=== PATIENT | male | born 1975 | race Hispanic/Latino ===

== ENCOUNTER 2021-03-04 21:47 | Inpatient (IN) | payer OTHER, SELFPAY ==
[~2021-03-04 21:47] MED LIST: Iopamidol-370 76% 500 ML 1 ML ONE
[2021-03-04] MEDS ORDERED: Fentanyl 100 MCG/2 ML VIAL ONE (21:54)
[2021-03-04] MEDS ORDERED: Boostrix 0.5 ML (Tdap) VIAL ONE (22:07)
[2021-03-04] MEDS ORDERED: Dextrose 5% in Water 1,000 ML IV PRN (22:12)
[2021-03-04] MEDS ORDERED: Ondansetron PF 4 MG/2 ML Vial IVP PRN (22:12)
[2021-03-04] MEDS ORDERED: Dextrose 50% Abboject 50 ML SYRINGE SLOW IVP PRN (22:12)
[2021-03-04] MEDS ORDERED: Sodium Chloride 0.9% 1,000 ML IV SCH (22:15)
[2021-03-04 22:19] LABS: #Eosinphils 0.1 thou/uL (0.0-0.7); #Lymphocytes 2.2 thou/uL (1.20-3.40); #Neutrophils 11.8 thou/uL (1.40-6.50); %Eosinophils 0.4 % (0.0-10.0); %Lymphocytes 14.3 % (21.0-51.0); %Monocytes 6.4 % (0.0-10.0); %Neutrophils 78.8 % (42.0-75.0); Hemoglobin 13.2 g/dL (14.0-18.0); Mean Corpuscular HGB CONC 33.2 g/dL (32.0-36.0); Mean Corpuscular Hemoglobin 31.1 pg (27.0-31.0); Mean Corpuscular Volume 93.8 fL (78.0-98.0); Mean Platelet Volume 7.8 fL (7.4-10.4); Platelet Count 240 thou/uL (130-400); RBC Distribution Width 12.2 % (11.5-14.5); Red Blood Cell (RBC) Count 4.25 mill/uL (4.70-6.10)
[2021-03-04] MEDS ORDERED: Ventilator Sedation Protocol 1 EACH FS ONE (22:20)
[2021-03-04] MEDS ORDERED: Lorazepam 2 MG/ML VIAL SLOW IVP PRN (22:30)
[2021-03-04] MEDS ORDERED: Propofol BOLUS 1,000 MG/100 ML VIAL IV PRN (22:30)
[2021-03-04] MEDS ORDERED: DISCONTINUE PREVIOUS NARCOTIC PAIN MEDICATIONS AND BENZODIAZEPINES FS SCH (22:30)
[2021-03-04] MEDS ORDERED: Propofol 1,000 MG/100 ML VIAL IV PRN (22:30)
[2021-03-04] MEDS ORDERED: Fentanyl BOLUS 250 ML IVPB PRN (22:30)
[2021-03-04 22:32] LABS: INR-International Normal Ratio 1.1; PTT 25.6 sec (22.9-36.1); Prothrombin Time 14.1 sec (12.0-14.7)
[2021-03-04 22:35] LABS: Actual Bicarbonate (HCO3a) 25.4 mEq/L (22-28); Analyzer IN Cardio ER; Base Excess (BEa) 0.9 mEq/L (-2.0 to +3.0); CO2 Tension 40.1 mmHg (35.0-45.0); Calcium, Ionized (arterial) 1.13 mmol/L (1.12-1.30); Hemoglobin (Hb) 13.6 g/dL (14.0-18.0); O2 Tension (PaO2), arterial 129.1 mmHg (80.0-100.0); Potassium - ABG Lab 3.86 mmol/L (3.70-5.30); pH, Arterial 7.42 (7.35-7.45)
[2021-03-04 22:35] LABS: ALT (SGPT) 427 U/L (8-55); AST (SGOT) 548 U/L (5-34); Albumin 3.6 g/dL (3.5-5.0); Alkaline Phosphatase 82 U/L (40-110); Anion Gap 14 mmol/L (10-20); BUN (Urea Nitrogen) 16 mg/dL (8.9-20.6); Bilirubin, Total 0.4 mg/dL (0.2-1.2); CK (CPK) 2959 U/L (30-200); Calc. Creatinine Clearance 0 mL/min (70-130); Calcium 8.8 mg/dL (7.8-10.44); Carbon Dioxide 25 mmol/L (22-29); Chloride 105 mmol/L (98-107); Globulin 3.4 g/dL (2.4-3.5); Glucose 278 mg/dL (70-105); Magnesium 2.2 mg/dL (1.6-2.6); Phosphorus 4.7 mg/dL (2.3-4.7); Potassium 4.1 mmol/L (3.5-5.1); Sodium 140 mmol/L (136-145)
[2021-03-04 23:15] LABS: ALV-art Gradient 177.275 mmHg (0-20); Puncture Site LRA
[2021-03-05] MEDS: Insulin Regular 300 UNITS/3 ML VIAL SC PRN ×3 (01:02→10:39)
[2021-03-05 01:13] LABS: Lactic Acid 3.3 mmol/L (0.5-2.2)
[2021-03-05] MEDS: Sodium Chloride 0.9% 1,000 ML IV SCH ×2 (01:24→06:24)
[2021-03-05 04:30] LABS: INR-International Normal Ratio 1.1; PTT 32.4 sec (22.9-36.1); Prothrombin Time 14.3 sec (12.0-14.7)
[2021-03-05 04:43] LABS: Anion Gap 14 mmol/L (10-20); BUN (Urea Nitrogen) 17 mg/dL (8.9-20.6); Calc. Creatinine Clearance 106 mL/min (70-130); Calcium 8.3 mg/dL (7.8-10.44); Carbon Dioxide 24 mmol/L (22-29); Chloride 108 mmol/L (98-107); Glucose 255 mg/dL (70-105); Sodium 142 mmol/L (136-145)
[2021-03-05 04:45] LABS: Bacteria/HPF None Seen HPF (None Seen); Bilirubin Negative (Negative); Blood, Urine 3+ (Negative); Clarity Clear (Clear); Glucose, Urine (Dipstick) Normal (Negative); Ketone, Urine Negative (Negative); Leukocyte Negative Leu/uL (Negative); Nitrite Negative (Negative); Protein, Urine (Dipstick) 20 mg/dL (Neg-Trace); Specific Gravity, Urine 1.041 (1.002-1.036); Squamous Epithelial None Seen HPF (0-3); Urobilinogen Normal mg/dL (Less than 2); pH, Urine 5.5 (5.0-9.0)
[2021-03-05 05:00] LABS: CK (CPK) 5605 U/L (30-200)
[2021-03-05 05:14] LABS: Hemoglobin 11.4 g/dL (14.0-18.0); Mean Corpuscular HGB CONC 33.9 g/dL (32.0-36.0); Mean Corpuscular Hemoglobin 31.8 pg (27.0-31.0); Mean Corpuscular Volume 93.9 fL (78.0-98.0); Mean Platelet Volume 8.2 fL (7.4-10.4); Platelet Count 173 thou/uL (130-400); RBC Distribution Width 12.3 % (11.5-14.5); Red Blood Cell (RBC) Count 3.59 mill/uL (4.70-6.10); White Blood Cell (WBC) Count 14.5 thou/uL (4.8-10.8)
[2021-03-05 05:15] LABS: Band 31 % (5-11); Lymphocytes 9 % (21-51); MDiff Complete? YES; Monocytes 8 % (0-10); Neutrophil 52 % (42-75); Platelet Morphology Comment Appears Adequate
[2021-03-05 07:26] LABS: Actual Bicarbonate (HCO3a) 18.6 mEq/L (22-28); Base Excess (BEa) -2.5 mEq/L (-2.0 to +3.0); Calcium, Ionized (arterial) 1.08 mmol/L (1.12-1.30); Carboxyhemoglobin (COHb) 0.1 gm% (0.0-3.0); Hemoglobin (Hb) 12.1 g/dL (14.0-18.0); O2 Tension (PaO2), arterial 78.7 mmHg (80.0-100.0); Potassium - ABG Lab 3.75 mmol/L (3.70-5.30); pH, Arterial 7.53 (7.35-7.45)
[2021-03-05 07:57] LABS: Hemoglobin A1c 7.4 % (4.0-6.0)
[2021-03-05 08:20] LABS: ALV-art Gradient 177.875 mmHg (0-20); CO2 Tension 22.9 mmHg (35.0-45.0); Puncture Site RRA
[2021-03-05] MEDS: Famotidine/PF 20 mg/2ml Vial SLOW IVP SCH ×2 (09:00→20:53)
[2021-03-05] MEDS ORDERED: Calcium Chloride 13.6 MEQ in Sodium Chloride 0.9% 100 ML IVPB SCH (10:30)
[2021-03-05] MEDS ORDERED: Lactated Ringer's 1,000 ML IV SCH (10:45)
[2021-03-05] MEDS ORDERED: Sodium Phosphate 30 MMOL in Sodium Chloride 0.9% 250 ML 250 ML IVPB SCH (10:45)
[2021-03-05] MEDS: Lactated Ringer's 1,000 ML IV SCH ×2 (12:03→18:52)
[2021-03-05] MEDS ORDERED: Fentanyl CADD 100 ML ONE (12:20)
[2021-03-05] MEDS: Fentanyl CADD 100 ML IV SCH (12:23)
[2021-03-05] MEDS ORDERED: Dextrose 5% in Water 1,000 ML IV PRN (13:45)
[2021-03-05] MEDS ORDERED: Dextrose 50% Abboject 50 ML SYRINGE SLOW IVP PRN (13:45)
[2021-03-05] MEDS: HUMULIN R 100 UNITS in Sodium Chloride 0.9% 100 ML IVPB SCH (15:04)
[2021-03-06] MEDS: Lactated Ringer's 1,000 ML IV SCH ×4 (02:10→16:06)
[2021-03-06] MEDS ORDERED: Lactated Ringer's 1,000 ML IV SCH (03:45)
[2021-03-06] MEDS ORDERED: Fentanyl CADD 100 ML ONE (06:02)
[2021-03-06 06:03] LABS: Hemoglobin 8.2 g/dL (14.0-18.0); Mean Corpuscular HGB CONC 34.4 g/dL (32.0-36.0); Mean Corpuscular Hemoglobin 32.7 pg (27.0-31.0); Mean Corpuscular Volume 95.1 fL (78.0-98.0); Mean Platelet Volume 7.8 fL (7.4-10.4); Platelet Count 116 thou/uL (130-400); RBC Distribution Width 12.7 % (11.5-14.5); Red Blood Cell (RBC) Count 2.51 mill/uL (4.70-6.10); White Blood Cell (WBC) Count 11.2 thou/uL (4.8-10.8)
[2021-03-06 06:09] LABS: Band 36 % (5-11); Lymphocytes 16 % (21-51); MDiff Complete? YES; Monocytes 4 % (0-10); Neutrophil 44 % (42-75); Platelet Morphology Comment Appears Decreased
[2021-03-06] MEDS ORDERED: Lorazepam 2 MG/ML VIAL SLOW IVP SCH (06:10)
[2021-03-06] MEDS: Lorazepam 2 MG/ML VIAL ONE (06:15)
[2021-03-06 06:17] LABS: Anion Gap 7 mmol/L (10-20); BUN (Urea Nitrogen) 18 mg/dL (8.9-20.6); Calc. Creatinine Clearance 138 mL/min (70-130); Calcium 8.4 mg/dL (7.8-10.44); Carbon Dioxide 28 mmol/L (22-29); Chloride 115 mmol/L (98-107); Glucose 120 mg/dL (70-105); Sodium 146 mmol/L (136-145)
[2021-03-06 06:26] LABS: CK (CPK) 4638 U/L (30-200)
[2021-03-06] MEDS: HUMULIN R 100 UNITS in Sodium Chloride 0.9% 100 ML IVPB SCH (06:37)
[2021-03-06 07:00] LABS: pH, Arterial 7.34 (7.35-7.45)
[2021-03-06 07:01] LABS: Base Excess (BEa) -2.7 mEq/L (-2.0 to +3.0); Calcium, Ionized (arterial) 1.18 mmol/L (1.12-1.30); Carboxyhemoglobin (COHb) 0.3 gm% (0.0-3.0); Hemoglobin (Hb) 9.5 g/dL (14.0-18.0); O2 Tension (PaO2), arterial 156.9 mmHg (80.0-100.0); Potassium - ABG Lab 3.51 mmol/L (3.70-5.30)
[2021-03-06 07:07] LABS: Puncture Site RRA
[2021-03-06] MEDS ORDERED: Ferrous Sulfate 325 MG TAB PO SCH (08:00)
[2021-03-06] MEDS: Ascorbic Acid 500 mg Chewable Tablet PER TUBE SCH ×2 (10:00→20:16)
[2021-03-06] MEDS: Famotidine/PF 20 mg/2ml Vial SLOW IVP SCH ×2 (10:00→20:16)
[2021-03-06 11:27] LABS: Actual Bicarbonate (HCO3a) 26.4 mEq/L (22-28); Base Excess (BEa) 1.8 mEq/L (-2.0 to +3.0); CO2 Tension 40.9 mmHg (35.0-45.0); Calcium, Ionized (arterial) 1.16 mmol/L (1.12-1.30); Carboxyhemoglobin (COHb) 0.1 gm% (0.0-3.0); Hemoglobin (Hb) 8.6 g/dL (14.0-18.0); O2 Tension (PaO2), arterial 90.3 mmHg (80.0-100.0); Potassium - ABG Lab 3.93 mmol/L (3.70-5.30); pH, Arterial 7.43 (7.35-7.45)
[2021-03-06 11:29] LABS: ALV-art Gradient 215.075 mmHg (0-20); Puncture Site RRA
[2021-03-06] MEDS ORDERED: Lactated Ringer's 500 ML IV SCH ×3 (12:00→20:15)
[2021-03-06] MEDS ORDERED: Pancrelipase DR 12,000 1 CAP FS PRN (15:15)
[2021-03-06] MEDS ORDERED: Sodium Bicarbonate Tab 325 MG TAB PER TUBE PRN (15:15)
[2021-03-06] MEDS ORDERED: Midodrine HCl 5 MG TAB PER TUBE SCH (20:15)
[2021-03-06] MEDS ORDERED: Hydrocortisone Sod Succ/PF 100 mg/2 ml Vial IVP SCH (20:30)
[2021-03-06] MEDS ORDERED: Norepinephrine 8 MG/0.9% NS 250 ML ONE (20:41)
[2021-03-06] MEDS ORDERED: Norepinephrine 8 MG/0.9% NS 250 ML IVPB SCH (22:15)
[2021-03-07] MEDS: Lactated Ringer's 1,000 ML IV SCH (00:35)
[2021-03-07] MEDS: Hydrocortisone Sod Succ/PF 100 mg/2 ml Vial IVP SCH ×4 (01:40→21:21)
[2021-03-07] MEDS: HUMULIN R 100 UNITS in Sodium Chloride 0.9% 100 ML IVPB SCH (01:40)
[2021-03-07] MEDS ORDERED: Midazolam HCl 2 mg/2 ml Vial SLOW IVP SCH (04:00)
[2021-03-07] MEDS ORDERED: Fentanyl CADD 100 ML ONE ×2 (04:03→16:56)
[2021-03-07 04:04] LABS: #Lymphocytes 2.7 thou/uL (1.20-3.40); #Neutrophils 12.7 thou/uL (1.40-6.50); %Eosinophils 0.1 % (0.0-10.0); %Lymphocytes 16.6 % (21.0-51.0); %Monocytes 6.2 % (0.0-10.0); %Neutrophils 77.1 % (42.0-75.0); Hemoglobin 8.3 g/dL (14.0-18.0); Mean Corpuscular HGB CONC 34.4 g/dL (32.0-36.0); Mean Corpuscular Hemoglobin 32.9 pg (27.0-31.0); Mean Corpuscular Volume 95.9 fL (78.0-98.0); Mean Platelet Volume 8.5 fL (7.4-10.4); Platelet Count 134 thou/uL (130-400); RBC Distribution Width 12.5 % (11.5-14.5); Red Blood Cell (RBC) Count 2.53 mill/uL (4.70-6.10); White Blood Cell (WBC) Count 16.5 thou/uL (4.8-10.8)
[2021-03-07] MEDS: Fentanyl CADD 100 ML IV SCH ×2 (04:13→16:58)
[2021-03-07 04:16] LABS: INR-International Normal Ratio 1.2; PTT 35.6 sec (22.9-36.1)
[2021-03-07 04:20] LABS: Anion Gap 7 mmol/L (10-20); BUN (Urea Nitrogen) 19 mg/dL (8.9-20.6); Calc. Creatinine Clearance 153 mL/min (70-130); Calcium 8.6 mg/dL (7.8-10.44); Carbon Dioxide 30 mmol/L (22-29); Chloride 113 mmol/L (98-107); Glucose 123 mg/dL (70-105); Magnesium 2.1 mg/dL (1.6-2.6); Phosphorus 2.4 mg/dL (2.3-4.7); Sodium 146 mmol/L (136-145)
[2021-03-07 05:42] LABS: CK (CPK) 7014 U/L (30-200)
[2021-03-07] MEDS ORDERED: Midazolam HCl 2 mg/2 ml Vial SLOW IVP PRN ×2 (06:33)
[2021-03-07] MEDS ORDERED: Fentanyl 100 MCG/2 ML VIAL SLOW IVP PRN ×2 (06:34)
[2021-03-07] MEDS ORDERED: Vecuronium 10 MG VIAL IV SCH (06:45)
[2021-03-07] MEDS ORDERED: Lidocaine 1% w/Epinephrine 1:100K 20 ML VIAL FS SCH (06:45)
[2021-03-07] MEDS: Famotidine/PF 20 mg/2ml Vial SLOW IVP SCH ×2 (08:15→21:24)
[2021-03-07 08:21] LABS: Actual Bicarbonate (HCO3a) 25.4 mEq/L (22-28); Base Excess (BEa) 1.9 mEq/L (-2.0 to +3.0); CO2 Tension 35.3 mmHg (35.0-45.0); Calcium, Ionized (arterial) 1.14 mmol/L (1.12-1.30); Hemoglobin (Hb) 9.1 g/dL (14.0-18.0); Potassium - ABG Lab 3.95 mmol/L (3.70-5.30); pH, Arterial 7.48 (7.35-7.45)
[2021-03-07 08:26] LABS: O2 Tension (PaO2), arterial 57.4 mmHg (80.0-100.0); Puncture Site Arterial Line
[2021-03-07 08:27] LABS: ALV-art Gradient 254.975 mmHg (0-20)
[2021-03-07] MEDS: Vecuronium 10 MG VIAL ONE ×2 (13:00→14:00)
[2021-03-07] MEDS ORDERED: CEFAZOLIN 2 GM in Premix Bag 1 BAG IVPB SCH (13:15)
[2021-03-07] MEDS ORDERED: Midazolam HCl 2 mg/2 ml Vial ONE (13:26)
[2021-03-07] MEDS ORDERED: Furosemide 20 MG/2 ML VIAL SLOW IVP SCH (14:12)
[2021-03-07] MEDS ORDERED: Furosemide 40 MG/4 ML VIAL ONE (14:48)
[2021-03-07] MEDS: Insulin Regular 300 UNITS/3 ML VIAL SC PRN ×2 (15:31→21:32)
[2021-03-07] MEDS ORDERED: Lantus 1000 UNITS/10 ML VIAL SC SCH (21:00)
[2021-03-07] MEDS: Ascorbic Acid 500 mg Chewable Tablet PER TUBE SCH (21:24)
[2021-03-07] MEDS: Dexmedetomidine 1,000 MCG in Sodium Chloride 0.9% 250 ML 240 ML IVPB SCH (22:52)
[2021-03-08] MEDS ORDERED: Acetaminophen 650 MG Suppository PR PRN (01:03)
[2021-03-08] MEDS: Insulin Regular 300 UNITS/3 ML VIAL SC PRN ×5 (01:07→20:20)
[2021-03-08] MEDS: Hydrocortisone Sod Succ/PF 100 mg/2 ml Vial IVP SCH ×2 (03:26→07:35)
[2021-03-08 04:35] LABS: #Lymphocytes 2.1 thou/uL (1.20-3.40); %Basophils 0.1 % (0.0-1.0); %Eosinophils 0.1 % (0.0-10.0); %Lymphocytes 16.3 % (21.0-51.0); %Monocytes 7.5 % (0.0-10.0); Mean Corpuscular HGB CONC 32.7 g/dL (32.0-36.0); Mean Corpuscular Hemoglobin 31.4 pg (27.0-31.0); Mean Corpuscular Volume 96.1 fL (78.0-98.0); Mean Platelet Volume 8.8 fL (7.4-10.4); Platelet Count 146 thou/uL (130-400); RBC Distribution Width 12.3 % (11.5-14.5); Red Blood Cell (RBC) Count 2.21 mill/uL (4.70-6.10); White Blood Cell (WBC) Count 13.1 thou/uL (4.8-10.8)
[2021-03-08 04:49] LABS: Anion Gap 10 mmol/L (10-20); BUN (Urea Nitrogen) 19 mg/dL (8.9-20.6); CK (CPK) 3684 U/L (30-200); Calc. Creatinine Clearance 161 mL/min (70-130); Calcium 8.2 mg/dL (7.8-10.44); Carbon Dioxide 27 mmol/L (22-29); Chloride 113 mmol/L (98-107); Glucose 216 mg/dL (70-105); Phosphorus 2.8 mg/dL (2.3-4.7); Potassium 3.6 mmol/L (3.5-5.1); Sodium 146 mmol/L (136-145)
[2021-03-08] MEDS: Dexmedetomidine 1,000 MCG in Sodium Chloride 0.9% 250 ML 240 ML IVPB SCH ×2 (06:03→13:54)
[2021-03-08] MEDS ORDERED: Potassium Phosphate 30 MMOL in Sodium Chloride 0.9% 250 ML 250 ML IVPB SCH (07:30)
[2021-03-08] MEDS: Famotidine/PF 20 mg/2ml Vial SLOW IVP SCH ×2 (07:36→20:12)
[2021-03-08] MEDS: Ascorbic Acid 500 mg Chewable Tablet PER TUBE SCH ×2 (07:36→20:12)
[2021-03-08 08:13] LABS: Hemoglobin 8.2 g/dL (14.0-18.0); Mean Corpuscular HGB CONC 34.9 g/dL (32.0-36.0); Mean Corpuscular Hemoglobin 33.3 pg (27.0-31.0); Mean Corpuscular Volume 95.4 fL (78.0-98.0); Mean Platelet Volume 8.8 fL (7.4-10.4); Platelet Count 145 thou/uL (130-400); RBC Distribution Width 12.2 % (11.5-14.5); Red Blood Cell (RBC) Count 2.45 mill/uL (4.70-6.10); White Blood Cell (WBC) Count 11.6 thou/uL (4.8-10.8)
[2021-03-08] MEDS: Senokot S 8.6-50 MG TAB PO SCH ×2 (08:27→20:11)
[2021-03-08] MEDS: Polyethylene Glycol 3350 17 GM Packet PO SCH (08:27)
[2021-03-08 09:30] LABS: Band 7 % (5-11); Eosinophils 1 % (0-10); Lymphocytes 18 % (21-51); MDiff Complete? YES; Monocytes 4 % (0-10); Neutrophil 70 % (42-75); Platelet Morphology Comment Appears Adequate; Polychromasia SLIGHT = 2-3 cells (100X) (0-2/hpf)
[2021-03-08] MEDS: Furosemide 20 MG/2 ML VIAL SLOW IVP SCH ×2 (10:49→17:17)
[2021-03-08 11:00] LABS: Bacteria/HPF None Seen HPF (None Seen); Bilirubin Negative (Negative); Blood, Urine 3+ (Negative); Clarity Clear (Clear); Glucose, Urine (Dipstick) Normal (Negative); Ketone, Urine Negative (Negative); Leukocyte Negative Leu/uL (Negative); Nitrite Negative (Negative); Protein, Urine (Dipstick) 30 mg/dL (Neg-Trace); Specific Gravity, Urine 1.021 (1.002-1.036); Squamous Epithelial None Seen HPF (0-3); WBC/HPF 0-3 HPF (0-3); pH, Urine 6.5 (5.0-9.0)
[2021-03-08 11:02] LABS: Urine Culture Reflex No No
[2021-03-08] MEDS ORDERED: Piperacillin/Tazobactam 3.375 GM in Sodium Chloride 0.9% 100 ML IVPB SCH ×2 (17:30→18:00)
[2021-03-08] MEDS ORDERED: Piperacillin/Tazobactam 4.5 GM in Sodium Chloride 0.9% 100 ML IVPB SCH (18:00)
[2021-03-08] MEDS: Acetaminophen 650 MG/20.3 ML UDCUP PER TUBE PRN (20:11)
[2021-03-08] MEDS: Lantus 1000 UNITS/10 ML VIAL SC SCH (20:12)
[2021-03-09] MEDS: Piperacillin/Tazobactam 3.375 GM in Sodium Chloride 0.9% 100 ML IVPB SCH ×3 (00:59→16:10)
[2021-03-09] MEDS: Furosemide 20 MG/2 ML VIAL SLOW IVP SCH ×3 (01:00→21:16)
[2021-03-09] MEDS: Acetaminophen 650 MG/20.3 ML UDCUP PER TUBE PRN ×2 (01:10→19:20)
[2021-03-09] MEDS: Insulin Regular 300 UNITS/3 ML VIAL SC PRN ×4 (05:41→21:59)
[2021-03-09 06:48] LABS: Hemoglobin 9.1 g/dL (14.0-18.0); Mean Corpuscular HGB CONC 34.6 g/dL (32.0-36.0); Mean Corpuscular Hemoglobin 32.9 pg (27.0-31.0); Mean Corpuscular Volume 94.9 fL (78.0-98.0); Mean Platelet Volume 8.8 fL (7.4-10.4); Platelet Count 167 thou/uL (130-400); RBC Distribution Width 12.2 % (11.5-14.5); Red Blood Cell (RBC) Count 2.75 mill/uL (4.70-6.10); White Blood Cell (WBC) Count 16.5 thou/uL (4.8-10.8)
[2021-03-09 07:10] LABS: Anion Gap 11 mmol/L (10-20); BUN (Urea Nitrogen) 19 mg/dL (8.9-20.6); Calc. Creatinine Clearance 146 mL/min (70-130); Calcium 8.4 mg/dL (7.8-10.44); Carbon Dioxide 30 mmol/L (22-29); Chloride 108 mmol/L (98-107); Glucose 199 mg/dL (70-105); Magnesium 2.1 mg/dL (1.6-2.6); Phosphorus 3.3 mg/dL (2.3-4.7); Potassium 3.1 mmol/L (3.5-5.1); Sodium 146 mmol/L (136-145)
[2021-03-09] MEDS: Famotidine/PF 20 mg/2ml Vial SLOW IVP SCH ×2 (07:14→21:16)
[2021-03-09] MEDS: Ascorbic Acid 500 mg Chewable Tablet PER TUBE SCH ×2 (07:15→21:16)
[2021-03-09] MEDS: Polyethylene Glycol 3350 17 GM Packet PO SCH (07:16)
[2021-03-09] MEDS: Senokot S 8.6-50 MG TAB PO SCH ×2 (07:16→21:17)
[2021-03-09 07:38] LABS: Band 6 % (5-11); Eosinophils 2 % (0-10); Lymphocytes 13 % (21-51); MDiff Complete? YES; Monocytes 10 % (0-10); Neutrophil 68 % (42-75); Platelet Morphology Comment Appears Adequate; Polychromasia MODERATE = 3-4 cells (100X) (0-2/hpf)
[2021-03-09] MEDS ORDERED: Potassium Chloride 20 MEQ TAB PER TUBE SCH (08:30)
[2021-03-09] MEDS ORDERED: Fentanyl CADD 100 ML ONE (09:46)
[2021-03-09] MEDS: Dexmedetomidine 1,000 MCG in Sodium Chloride 0.9% 250 ML 240 ML IVPB SCH (10:35)
[2021-03-09 13:13] LABS: Potassium 3.2 mmol/L (3.5-5.1)
[2021-03-09] MEDS ORDERED: Lorazepam 2 MG/ML VIAL SLOW IVP SCH (13:15)
[2021-03-09 16:38] LABS: Phosphorus 3.6 mg/dL (2.3-4.7)
[2021-03-09 16:41] LABS: Anion Gap 12 mmol/L (10-20); BUN (Urea Nitrogen) 25 mg/dL (8.9-20.6); Calc. Creatinine Clearance 122 mL/min (70-130); Carbon Dioxide 28 mmol/L (22-29); Chloride 111 mmol/L (98-107); Glucose 204 mg/dL (70-105); Magnesium 2.2 mg/dL (1.6-2.6); Potassium 3.4 mmol/L (3.5-5.1); Sodium 148 mmol/L (136-145)
[2021-03-09] MEDS ORDERED: Potassium Phosphate 30 MMOL in Sodium Chloride 0.9% 500 ML IVPB SCH (18:30)
[2021-03-09] MEDS: Lantus 1000 UNITS/10 ML VIAL SC SCH (21:17)
[2021-03-10] MEDS: Piperacillin/Tazobactam 3.375 GM in Sodium Chloride 0.9% 100 ML IVPB SCH ×3 (00:55→16:05)
[2021-03-10 07:31] LABS: Hemoglobin 7.9 g/dL (14.0-18.0); Mean Corpuscular Hemoglobin 32.1 pg (27.0-31.0); Mean Corpuscular Volume 97.4 fL (78.0-98.0); Mean Platelet Volume 9.2 fL (7.4-10.4); Platelet Count 170 thou/uL (130-400); RBC Distribution Width 12.7 % (11.5-14.5); Red Blood Cell (RBC) Count 2.46 mill/uL (4.70-6.10); White Blood Cell (WBC) Count 13.2 thou/uL (4.8-10.8)
[2021-03-10 07:33] LABS: Anion Gap 12 mmol/L (10-20); BUN (Urea Nitrogen) 29 mg/dL (8.9-20.6); Calc. Creatinine Clearance 124 mL/min (70-130); Calcium 7.7 mg/dL (7.8-10.44); Carbon Dioxide 28 mmol/L (22-29); Chloride 113 mmol/L (98-107); Glucose 224 mg/dL (70-105); Magnesium 2.3 mg/dL (1.6-2.6); Phosphorus 3.5 mg/dL (2.3-4.7); Potassium 3.6 mmol/L (3.5-5.1); Sodium 149 mmol/L (136-145)
[2021-03-10] MEDS: Aspirin 325 MG TAB PO SCH (08:01)
[2021-03-10] MEDS: Famotidine/PF 20 mg/2ml Vial SLOW IVP SCH ×2 (08:01→21:02)
[2021-03-10] MEDS: Ascorbic Acid 500 mg Chewable Tablet PER TUBE SCH ×2 (08:01→21:02)
[2021-03-10 08:22] LABS: #Eosinphils 0.3 thou/uL (0.0-0.7); #Lymphocytes 2.6 thou/uL (1.20-3.40); #Monocytes 0.8 thou/uL (0.11-0.59); #Neutrophils 9.5 thou/uL (1.40-6.50); %Eosinophils 2.5 % (0.0-10.0); %Lymphocytes 19.7 % (21.0-51.0); %Monocytes 5.8 % (0.0-10.0)
[2021-03-10] MEDS: Senokot S 8.6-50 MG TAB PO SCH ×2 (08:29→21:00)
[2021-03-10] MEDS: Polyethylene Glycol 3350 17 GM Packet PO SCH (08:29)
[2021-03-10] MEDS: Acetaminophen 650 MG/20.3 ML UDCUP PER TUBE PRN ×2 (08:30→16:05)
[2021-03-10] MEDS: Insulin Regular 300 UNITS/3 ML VIAL SC PRN ×2 (08:31→16:08)
[2021-03-10] MEDS ORDERED: VANCOMYCIN 2 GRAM/400 ML BAG 2 GM in Premix Bag 1 BAG IVPB SCH (09:00)
[2021-03-10] MEDS ORDERED: Lactulose 10 GM/15 ML Oral Solution PO SCH (09:00)
[2021-03-10] MEDS ORDERED: Midazolam HCl 2 mg/2 ml Vial SLOW IVP SCH (09:07)
[2021-03-10] MEDS ORDERED: Midazolam HCl 2 mg/2 ml Vial ONE (09:07)
[2021-03-10] MEDS ORDERED: Fentanyl CADD 100 ML ONE (13:12)
[2021-03-10] MEDS: Fentanyl CADD 100 ML IV SCH (13:15)
[2021-03-10] MEDS: Vancomycin 1.5 GRAM/300 ML BAG 1.5 GM in Premix Bag 1 BAG IVPB SCH (16:05)
[2021-03-10] MEDS ORDERED: Lantus 1000 UNITS/10 ML VIAL SC SCH (21:00)
[2021-03-10] MEDS: Piperacillin/Tazobactam 4.5 GM in Sodium Chloride 0.9% 100 ML IVPB SCH (23:49)
[2021-03-11] MEDS: Vancomycin 1.5 GRAM/300 ML BAG 1.5 GM in Premix Bag 1 BAG IVPB SCH ×4 (01:45→21:00)
[2021-03-11] MEDS: Dexmedetomidine 1,000 MCG in Sodium Chloride 0.9% 250 ML 240 ML IVPB SCH ×2 (02:29→15:43)
[2021-03-11] MEDS: Insulin Regular 300 UNITS/3 ML VIAL SC PRN ×4 (02:32→18:01)
[2021-03-11 04:58] LABS: Anion Gap 10 mmol/L (10-20); BUN (Urea Nitrogen) 25 mg/dL (8.9-20.6); Calc. Creatinine Clearance 158 mL/min (70-130); Calcium 8.1 mg/dL (7.8-10.44); Carbon Dioxide 29 mmol/L (22-29); Chloride 113 mmol/L (98-107); Glucose 240 mg/dL (70-105); Magnesium 2.5 mg/dL (1.6-2.6); Phosphorus 2.4 mg/dL (2.3-4.7); Potassium 3.5 mmol/L (3.5-5.1); Sodium 148 mmol/L (136-145)
[2021-03-11] MEDS: Acetaminophen 650 MG/20.3 ML UDCUP PER TUBE PRN ×2 (05:14→17:16)
[2021-03-11 05:48] LABS: #Eosinphils 0.4 thou/uL (0.0-0.7); #Monocytes 0.7 thou/uL (0.11-0.59); #Neutrophils 10.2 thou/uL (1.40-6.50); %Basophils 0.1 % (0.0-1.0); %Eosinophils 3.2 % (0.0-10.0); %Lymphocytes 15.1 % (21.0-51.0); %Monocytes 5.1 % (0.0-10.0); %Neutrophils 76.4 % (42.0-75.0); Hemoglobin 8.2 g/dL (14.0-18.0); Mean Corpuscular HGB CONC 33.6 g/dL (32.0-36.0); Mean Corpuscular Hemoglobin 32.3 pg (27.0-31.0); Mean Corpuscular Volume 96.4 fL (78.0-98.0); Mean Platelet Volume 9.5 fL (7.4-10.4); Platelet Count 203 thou/uL (130-400); RBC Distribution Width 12.5 % (11.5-14.5); RBC Morphology Normal; Red Blood Cell (RBC) Count 2.53 mill/uL (4.70-6.10); White Blood Cell (WBC) Count 13.3 thou/uL (4.8-10.8)
[2021-03-11] MEDS ORDERED: Fentanyl CADD 100 ML ONE (07:44)
[2021-03-11] MEDS: Fentanyl CADD 100 ML IV SCH (07:49)
[2021-03-11] MEDS ORDERED: Potassium Phosphate 30 MMOL in Sodium Chloride 0.9% 500 ML IVPB SCH (08:00)
[2021-03-11] MEDS: Piperacillin/Tazobactam 4.5 GM in Sodium Chloride 0.9% 100 ML IVPB SCH (08:08)
[2021-03-11] MEDS: Senokot S 8.6-50 MG TAB PO SCH ×2 (08:28→21:30)
[2021-03-11] MEDS: Polyethylene Glycol 3350 17 GM Packet PO SCH (08:29)
[2021-03-11] MEDS: Aspirin 325 MG TAB PO SCH (08:29)
[2021-03-11] MEDS: Ascorbic Acid 500 mg Chewable Tablet PER TUBE SCH ×2 (08:29→21:30)
[2021-03-11] MEDS: Lorazepam 2 MG/ML VIAL ONE (10:53)
[2021-03-11 11:38] LABS: Vancomycin, Trough 15.6 ug/mL
[2021-03-11] MEDS: Famotidine/PF 20 mg/2ml Vial SLOW IVP SCH ×2 (11:38→21:31)
[2021-03-11] MEDS: Piperacillin/Tazobactam 3.375 GM in Sodium Chloride 0.9% 100 ML IVPB SCH (15:43)
[2021-03-11] MEDS: Lantus 1000 UNITS/10 ML VIAL SC SCH (21:51)
[2021-03-11] MEDS ORDERED: Calcium Chloride 1 GM/10 ML Abboject SYRINGE IVP SCH (22:00)
[2021-03-11] MEDS ORDERED: Hydrocortisone Sod Succ/PF 100 mg/2 ml Vial IVP SCH (22:00)
[2021-03-11 23:05] LABS: Anion Gap 11 mmol/L (10-20); BUN (Urea Nitrogen) 27 mg/dL (8.9-20.6); Calc. Creatinine Clearance 172 mL/min (70-130); Calcium 8.4 mg/dL (7.8-10.44); Carbon Dioxide 26 mmol/L (22-29); Chloride 114 mmol/L (98-107); Glucose 259 mg/dL (70-105); Magnesium 2.5 mg/dL (1.6-2.6); Phosphorus 3.2 mg/dL (2.3-4.7); Potassium 4.1 mmol/L (3.5-5.1); Sodium 147 mmol/L (136-145)
[2021-03-12] MEDS: Insulin Regular 300 UNITS/3 ML VIAL SC PRN ×3 (00:37→23:01)
[2021-03-12] MEDS: Piperacillin/Tazobactam 3.375 GM in Sodium Chloride 0.9% 100 ML IVPB SCH ×4 (00:42→22:51)
[2021-03-12] MEDS: Fentanyl CADD 100 ML IV SCH (03:08)
[2021-03-12] MEDS: Morphine 2 MG/ML VIAL SLOW IVP PRN (03:46)
[2021-03-12] MEDS: Vancomycin 1.5 GRAM/300 ML BAG 1.5 GM in Premix Bag 1 BAG IVPB SCH ×2 (03:52→13:36)
[2021-03-12 04:41] LABS: Hemoglobin 7.9 g/dL (14.0-18.0); Mean Corpuscular HGB CONC 32.4 g/dL (32.0-36.0); Mean Corpuscular Hemoglobin 31.7 pg (27.0-31.0); Mean Platelet Volume 9.4 fL (7.4-10.4); Platelet Count 227 thou/uL (130-400); RBC Distribution Width 12.5 % (11.5-14.5); Red Blood Cell (RBC) Count 2.48 mill/uL (4.70-6.10); White Blood Cell (WBC) Count 14.7 thou/uL (4.8-10.8)
[2021-03-12 04:43] LABS: Anion Gap 11 mmol/L (10-20); BUN (Urea Nitrogen) 26 mg/dL (8.9-20.6); Calc. Creatinine Clearance 166 mL/min (70-130); Calcium 8.7 mg/dL (7.8-10.44); Carbon Dioxide 24 mmol/L (22-29); Chloride 113 mmol/L (98-107); Glucose 272 mg/dL (70-105); Magnesium 2.5 mg/dL (1.6-2.6); Phosphorus 3.1 mg/dL (2.3-4.7); Potassium 4.2 mmol/L (3.5-5.1); Sodium 144 mmol/L (136-145); Vancomycin, Trough 21.7 ug/mL
[2021-03-12] MEDS: Dexmedetomidine 1,000 MCG in Sodium Chloride 0.9% 250 ML 240 ML IVPB SCH ×3 (05:46→22:25)
[2021-03-12] MEDS: Hydrocortisone Sod Succ/PF 100 mg/2 ml Vial IVP SCH ×4 (05:50→22:51)
[2021-03-12 06:43] LABS: Band 10 % (5-11); Eosinophils 1 % (0-10); Lymphocytes 6 % (21-51); MDiff Complete? YES; Monocytes 3 % (0-10); Neutrophil 80 % (42-75)
[2021-03-12] MEDS: Senokot S 8.6-50 MG TAB PO SCH ×2 (08:17→19:50)
[2021-03-12] MEDS: Famotidine/PF 20 mg/2ml Vial SLOW IVP SCH ×2 (08:18→19:55)
[2021-03-12] MEDS: Aspirin 325 MG TAB PO SCH (08:18)
[2021-03-12] MEDS: Polyethylene Glycol 3350 17 GM Packet PO SCH (08:18)
[2021-03-12] MEDS: Ascorbic Acid 500 mg Chewable Tablet PER TUBE SCH ×2 (08:18→19:55)
[2021-03-12] MEDS ORDERED: Lantus 1000 UNITS/10 ML VIAL SC SCH (09:00)
[2021-03-12] MEDS ORDERED: Refresh Lacri-lube Opth Oint 7 GM TUBE EA EYE SCH (09:00)
[2021-03-12] MEDS: Amantadine HCl 100 mg Capsule PO SCH (11:29)
[2021-03-12] MEDS: Acetaminophen 650 MG/20.3 ML UDCUP PER TUBE PRN ×2 (14:02→20:25)
[2021-03-12] MEDS ORDERED: Fentanyl CADD 100 ML ONE (18:46)
[2021-03-12] MEDS: Lantus 1000 UNITS/10 ML VIAL SC SCH (19:56)
[2021-03-13] MEDS: Hydrocortisone Sod Succ/PF 100 mg/2 ml Vial IVP SCH ×4 (05:24→23:24)
[2021-03-13] MEDS: Insulin Regular 300 UNITS/3 ML VIAL SC PRN ×3 (06:52→16:59)
[2021-03-13 07:19] LABS: Hemoglobin 8.3 g/dL (14.0-18.0); Mean Corpuscular HGB CONC 33.2 g/dL (32.0-36.0); Mean Corpuscular Hemoglobin 32.2 pg (27.0-31.0); Mean Corpuscular Volume 97.1 fL (78.0-98.0); Platelet Count 297 thou/uL (130-400); RBC Distribution Width 12.6 % (11.5-14.5); Red Blood Cell (RBC) Count 2.56 mill/uL (4.70-6.10); White Blood Cell (WBC) Count 21.7 thou/uL (4.8-10.8)
[2021-03-13 07:35] LABS: Anion Gap 10 mmol/L (10-20); BUN (Urea Nitrogen) 25 mg/dL (8.9-20.6); Calc. Creatinine Clearance 150 mL/min (70-130); Calcium 8.3 mg/dL (7.8-10.44); Carbon Dioxide 25 mmol/L (22-29); Chloride 116 mmol/L (98-107); Glucose 254 mg/dL (70-105); Magnesium 2.4 mg/dL (1.6-2.6); Phosphorus 2.8 mg/dL (2.3-4.7); Potassium 3.8 mmol/L (3.5-5.1); Sodium 147 mmol/L (136-145)
[2021-03-13 08:26] LABS: Band 6 % (5-11); Lymphocytes 12 % (21-51); MDiff Complete? YES; Monocytes 5 % (0-10); Neutrophil 75 % (42-75); Platelet Morphology Comment Appears Adequate; Polychromasia SLIGHT = 2-3 cells (100X) (0-2/hpf); Reactive Lymphocytes 1 % (0-10)
[2021-03-13] MEDS: Piperacillin/Tazobactam 3.375 GM in Sodium Chloride 0.9% 100 ML IVPB SCH ×3 (08:57→23:23)
[2021-03-13] MEDS: Senokot S 8.6-50 MG TAB PO SCH ×2 (08:58→20:31)
[2021-03-13] MEDS: Aspirin 325 MG TAB PO SCH (08:58)
[2021-03-13] MEDS: Saccharomyces boulardii 250 MG CAP PO SCH ×2 (08:58→20:31)
[2021-03-13] MEDS: Ascorbic Acid 500 mg Chewable Tablet PER TUBE SCH ×2 (08:58→20:31)
[2021-03-13] MEDS: Polyethylene Glycol 3350 17 GM Packet PO SCH (08:59)
[2021-03-13] MEDS: Famotidine/PF 20 mg/2ml Vial SLOW IVP SCH ×2 (08:59→20:31)
[2021-03-13] MEDS: Amantadine HCl 100 mg Capsule PO SCH (09:01)
[2021-03-13] MEDS: Fluconazole In NaCl,Iso-Osm 400 MG in Premix Bag 1 BAG IVPB SCH (09:02)
[2021-03-13] MEDS: Dexmedetomidine 1,000 MCG in Sodium Chloride 0.9% 250 ML 240 ML IVPB SCH ×2 (09:04→18:51)
[2021-03-13] MEDS: Acetaminophen 650 MG/20.3 ML UDCUP PER TUBE PRN ×2 (09:14→19:27)
[2021-03-13] MEDS ORDERED: Artificial Tear Sol 15 ML BOT EA EYE PRN (09:45)
[2021-03-13] MEDS: Lantus 1000 UNITS/10 ML VIAL SC SCH ×3 (10:03→20:34)
[2021-03-13] MEDS: HYDROcodone/Acetaminophen 10/325 mg Tablet PO SCH ×3 (11:06→23:22)
[2021-03-13 12:24] LABS: Bilirubin Negative (Negative); Blood, Urine 1+ (Negative); Clarity Clear (Clear); Glucose, Urine (Dipstick) Normal (Negative); Ketone, Urine Negative (Negative); Leukocyte 25 Leu/uL (Negative); Nitrite Negative (Negative); Protein, Urine (Dipstick) 10 mg/dL (Neg-Trace); Specific Gravity, Urine 1.028 (1.002-1.036); Squamous Epithelial None Seen HPF (0-3); Urobilinogen 6 mg/dL (Less than 2); pH, Urine 5.5 (5.0-9.0)
[2021-03-13 12:27] LABS: Bacteria/HPF 1+ HPF (None Seen)
[2021-03-13] MEDS ORDERED: Bisacodyl 10 MG SUPP PR SCH (13:15)
[2021-03-13] MEDS ORDERED: Furosemide 20 MG/2 ML VIAL SLOW IVP SCH (13:15)
[2021-03-13] MEDS ORDERED: Fentanyl CADD 0 ML ONE (13:36)
[2021-03-13] MEDS ORDERED: cloNIDine 0.1 MG TAB PO SCH (14:00)
[2021-03-13] MEDS: Morphine 2 MG/ML VIAL SLOW IVP PRN ×4 (15:39→23:27)
[2021-03-13] MEDS: cloNIDine 0.1 MG TAB PO SCH ×2 (16:57→23:22)
[2021-03-14] MEDS: Insulin Regular 300 UNITS/3 ML VIAL SC PRN ×5 (00:09→22:30)
[2021-03-14] MEDS: Acetaminophen 650 MG/20.3 ML UDCUP PER TUBE PRN ×2 (01:00→07:14)
[2021-03-14] MEDS: Morphine 2 MG/ML VIAL SLOW IVP PRN ×7 (02:21→23:06)
[2021-03-14 04:42] LABS: ALT (SGPT) 61 U/L (8-55); AST (SGOT) 48 U/L (5-34); Albumin 2.5 g/dL (3.5-5.0); Alkaline Phosphatase 105 U/L (40-110); Anion Gap 11 mmol/L (10-20); BUN (Urea Nitrogen) 23 mg/dL (8.9-20.6); Bilirubin, Direct 0.5 mg/dL (0.1-0.3); Bilirubin, Total 1.1 mg/dL (0.2-1.2); Calc. Creatinine Clearance 154 mL/min (70-130); Calcium 7.9 mg/dL (7.8-10.44); Carbon Dioxide 27 mmol/L (22-29); Chloride 112 mmol/L (98-107); Glucose 274 mg/dL (70-105); Magnesium 2.3 mg/dL (1.6-2.6); Phosphorus 2.7 mg/dL (2.3-4.7); Potassium 3.5 mmol/L (3.5-5.1); Protein, Total 6.3 g/dL (6.0-8.3); Sodium 146 mmol/L (136-145)
[2021-03-14 04:53] LABS: Hemoglobin 7.2 g/dL (14.0-18.0); Mean Corpuscular HGB CONC 33.2 g/dL (32.0-36.0); Mean Corpuscular Hemoglobin 32.1 pg (27.0-31.0); Mean Corpuscular Volume 96.7 fL (78.0-98.0); Platelet Count 287 thou/uL (130-400); RBC Distribution Width 12.8 % (11.5-14.5); Red Blood Cell (RBC) Count 2.25 mill/uL (4.70-6.10); White Blood Cell (WBC) Count 17.5 thou/uL (4.8-10.8)
[2021-03-14 05:01] LABS: Band 4 % (5-11); Eosinophils 2 % (0-10); Lymphocytes 15 % (21-51); MDiff Complete? YES; Monocytes 2 % (0-10); Neutrophil 77 % (42-75)
[2021-03-14] MEDS: HYDROcodone/Acetaminophen 10/325 mg Tablet PO SCH ×4 (05:32→23:27)
[2021-03-14] MEDS: cloNIDine 0.1 MG TAB PO SCH ×4 (05:32→23:28)
[2021-03-14] MEDS: Hydrocortisone Sod Succ/PF 100 mg/2 ml Vial IVP SCH ×4 (05:39→23:30)
[2021-03-14] MEDS ORDERED: Potassium Phosphate 30 MMOL in Sodium Chloride 0.9% 250 ML 250 ML IVPB SCH (07:00)
[2021-03-14] MEDS: Piperacillin/Tazobactam 3.375 GM in Sodium Chloride 0.9% 100 ML IVPB SCH ×3 (07:12→23:29)
[2021-03-14] MEDS: Dexmedetomidine 1,000 MCG in Sodium Chloride 0.9% 250 ML 240 ML IVPB SCH (07:13)
[2021-03-14] MEDS: Polyethylene Glycol 3350 17 GM Packet PO SCH (07:13)
[2021-03-14] MEDS: Senokot S 8.6-50 MG TAB PO SCH ×2 (07:14→20:20)
[2021-03-14] MEDS: Amantadine HCl 100 mg Capsule PO SCH (07:14)
[2021-03-14] MEDS: Aspirin 325 MG TAB PO SCH (07:14)
[2021-03-14] MEDS: Saccharomyces boulardii 250 MG CAP PO SCH ×2 (07:14→21:05)
[2021-03-14] MEDS: Ascorbic Acid 500 mg Chewable Tablet PER TUBE SCH ×2 (07:15→20:21)
[2021-03-14] MEDS: Famotidine/PF 20 mg/2ml Vial SLOW IVP SCH (07:15)
[2021-03-14] MEDS: Lantus 1000 UNITS/10 ML VIAL SC SCH ×2 (07:16→20:22)
[2021-03-14] MEDS: Fluconazole In NaCl,Iso-Osm 400 MG in Premix Bag 1 BAG IVPB SCH (07:56)
[2021-03-14] MEDS ORDERED: Furosemide 20 MG/2 ML VIAL SLOW IVP SCH (08:30)
[2021-03-14] MEDS: hydrALAZINE 20 MG/ML VIAL SLOW IVP PRN (13:02)
[2021-03-14] MEDS ORDERED: Haloperidol Lactate 5 MG/ML VIAL SLOW IVP PRN (14:57)
[2021-03-14] MEDS ORDERED: Morphine 4 MG/ML VIAL ONE ×2 (15:22→15:38)
[2021-03-14] MEDS ORDERED: Lorazepam 2 MG/ML VIAL ONE ×2 (15:30→15:38)
[2021-03-14] MEDS ORDERED: diphenhydrAMINE 50 MG/ML VIAL IVP SCH (16:45)
[2021-03-14] MEDS ORDERED: carBAMazepine 20 MG/ML ORAL SUSP PO SCH (17:00)
[2021-03-14] MEDS: carBAMazepine 20 MG/ML ORAL SUSP PO SCH (17:31)
[2021-03-14] MEDS: clonazePAM 1 MG TAB PO SCH (17:32)
[2021-03-14] MEDS: Famotidine 20 MG TAB PO SCH (20:21)
[2021-03-15] MEDS: Morphine 4 MG/ML VIAL SLOW IVP PRN ×6 (00:09→17:32)
[2021-03-15] MEDS: carBAMazepine 20 MG/ML ORAL SUSP PO SCH ×5 (01:22→18:15)
[2021-03-15] MEDS: clonazePAM 1 MG TAB PO SCH ×5 (01:25→17:31)
[2021-03-15] MEDS ORDERED: Haloperidol Lactate 5 MG/ML VIAL SLOW IVP SCH (02:45)
[2021-03-15 03:59] LABS: #Eosinphils 0.1 thou/uL (0.0-0.7); #Lymphocytes 1.6 thou/uL (1.20-3.40); #Monocytes 0.7 thou/uL (0.11-0.59); #Neutrophils 13.6 thou/uL (1.40-6.50); %Basophils 0.1 % (0.0-1.0); %Eosinophils 0.5 % (0.0-10.0); %Lymphocytes 10.2 % (21.0-51.0); %Monocytes 4.5 % (0.0-10.0); %Neutrophils 84.6 % (42.0-75.0); Hemoglobin 7.9 g/dL (14.0-18.0); Mean Corpuscular HGB CONC 33.9 g/dL (32.0-36.0); Mean Corpuscular Hemoglobin 32.7 pg (27.0-31.0); Mean Corpuscular Volume 96.4 fL (78.0-98.0); Mean Platelet Volume 8.9 fL (7.4-10.4); Platelet Count 371 thou/uL (130-400); RBC Distribution Width 13.6 % (11.5-14.5); Red Blood Cell (RBC) Count 2.42 mill/uL (4.70-6.10)
[2021-03-15 04:11] LABS: Anion Gap 9 mmol/L (10-20); BUN (Urea Nitrogen) 20 mg/dL (8.9-20.6); Calc. Creatinine Clearance 170 mL/min (70-130); Carbon Dioxide 27 mmol/L (22-29); Chloride 112 mmol/L (98-107); Glucose 218 mg/dL (70-105); Magnesium 2.3 mg/dL (1.6-2.6); Phosphorus 2.5 mg/dL (2.3-4.7); Sodium 145 mmol/L (136-145)
[2021-03-15] MEDS: Insulin Regular 300 UNITS/3 ML VIAL SC PRN ×3 (04:12→22:45)
[2021-03-15] MEDS: Hydrocortisone Sod Succ/PF 100 mg/2 ml Vial IVP SCH ×3 (06:30→17:32)
[2021-03-15] MEDS: HYDROcodone/Acetaminophen 10/325 mg Tablet PO SCH ×4 (06:30→17:31)
[2021-03-15] MEDS: cloNIDine 0.1 MG TAB PO SCH ×2 (06:30→17:30)
[2021-03-15] MEDS ORDERED: Potassium Phosphate 30 MMOL in Sodium Chloride 0.9% 250 ML 250 ML IVPB SCH (07:54)
[2021-03-15] MEDS: Fluconazole In NaCl,Iso-Osm 400 MG in Premix Bag 1 BAG IVPB SCH (08:53)
[2021-03-15] MEDS: Acetaminophen 650 MG/20.3 ML UDCUP PER TUBE PRN ×2 (08:54→17:30)
[2021-03-15] MEDS: Piperacillin/Tazobactam 3.375 GM in Sodium Chloride 0.9% 100 ML IVPB SCH ×2 (08:54→16:31)
[2021-03-15] MEDS: Ascorbic Acid 500 mg Chewable Tablet PER TUBE SCH ×2 (08:55→21:19)
[2021-03-15] MEDS: Senokot S 8.6-50 MG TAB PO SCH ×2 (08:55→21:19)
[2021-03-15] MEDS: Saccharomyces boulardii 250 MG CAP PO SCH ×2 (08:55→21:19)
[2021-03-15] MEDS: Aspirin 325 MG TAB PO SCH (08:55)
[2021-03-15] MEDS: Polyethylene Glycol 3350 17 GM Packet PO SCH (08:55)
[2021-03-15] MEDS: Amantadine HCl 100 mg Capsule PO SCH (08:56)
[2021-03-15] MEDS: Famotidine 20 MG TAB PO SCH ×2 (08:56→21:19)
[2021-03-15] MEDS: Lantus 1000 UNITS/10 ML VIAL SC SCH ×2 (08:57→21:20)
[2021-03-15] MEDS ORDERED: cloNIDine 0.2 MG TAB PO SCH ×2 (09:30)
[2021-03-16] MEDS: Morphine 4 MG/ML VIAL SLOW IVP PRN ×7 (03:27→21:35)
[2021-03-16] MEDS ORDERED: Hydrocortisone Sod Succ/PF 100 mg/2 ml Vial ONE (03:55)
[2021-03-16] MEDS: HYDROcodone/Acetaminophen 10/325 mg Tablet PO SCH ×5 (04:07→23:47)
[2021-03-16] MEDS: cloNIDine 0.1 MG TAB PO SCH ×5 (04:07→23:48)
[2021-03-16] MEDS: Morphine 2 MG/ML VIAL SLOW IVP PRN (04:17)
[2021-03-16] MEDS: Hydrocortisone Sod Succ/PF 100 mg/2 ml Vial IVP SCH ×2 (04:33→06:29)
[2021-03-16 05:16] LABS: Hemoglobin 7.8 g/dL (14.0-18.0); Mean Corpuscular HGB CONC 32.8 g/dL (32.0-36.0); Mean Corpuscular Hemoglobin 32.2 pg (27.0-31.0); Mean Platelet Volume 8.8 fL (7.4-10.4); Platelet Count 420 thou/uL (130-400); RBC Distribution Width 13.6 % (11.5-14.5); Red Blood Cell (RBC) Count 2.42 mill/uL (4.70-6.10); White Blood Cell (WBC) Count 15.2 thou/uL (4.8-10.8)
[2021-03-16] MEDS: carBAMazepine 20 MG/ML ORAL SUSP PO SCH ×5 (05:16→23:49)
[2021-03-16] MEDS: clonazePAM 1 MG TAB PO SCH ×2 (05:18→05:43)
[2021-03-16] MEDS: Piperacillin/Tazobactam 3.375 GM in Sodium Chloride 0.9% 100 ML IVPB SCH ×3 (05:19→21:37)
[2021-03-16 05:22] LABS: Anion Gap 9 mmol/L (10-20); BUN (Urea Nitrogen) 20 mg/dL (8.9-20.6); Calc. Creatinine Clearance 148 mL/min (70-130); Carbon Dioxide 30 mmol/L (22-29); Chloride 113 mmol/L (98-107); Glucose 175 mg/dL (70-105); Magnesium 5.6 mg/dL (1.6-2.6); Phosphorus 2.5 mg/dL (2.3-4.7); Potassium 3.1 mmol/L (3.5-5.1); Sodium 149 mmol/L (136-145)
[2021-03-16] MEDS: hydrALAZINE 20 MG/ML VIAL SLOW IVP PRN (05:37)
[2021-03-16 05:53] LABS: Band 2 % (5-11); Eosinophils 3 % (0-10); Lymphocytes 24 % (21-51); MDiff Complete? YES; Monocytes 5 % (0-10); Neutrophil 66 % (42-75); Polychromasia SLIGHT = 2-3 cells (100X) (0-2/hpf)
[2021-03-16] MEDS ORDERED: Potassium Phosphate 30 MMOL in Sodium Chloride 0.9% 250 ML 250 ML IVPB SCH (08:00)
[2021-03-16] MEDS ORDERED: clonazePAM 1 MG TAB PO SCH (08:15)
[2021-03-16] MEDS: Ascorbic Acid 500 mg Chewable Tablet PER TUBE SCH ×2 (08:52→20:05)
[2021-03-16] MEDS: Famotidine 20 MG TAB PO SCH ×2 (08:54→20:04)
[2021-03-16] MEDS: Saccharomyces boulardii 250 MG CAP PO SCH ×2 (08:54→20:04)
[2021-03-16] MEDS: Aspirin 325 MG TAB PO SCH (08:54)
[2021-03-16] MEDS: Polyethylene Glycol 3350 17 GM Packet PO SCH (08:54)
[2021-03-16] MEDS: Fluconazole In NaCl,Iso-Osm 400 MG in Premix Bag 1 BAG IVPB SCH (08:54)
[2021-03-16] MEDS: Senokot S 8.6-50 MG TAB PO SCH ×2 (08:54→20:04)
[2021-03-16] MEDS: Lantus 1000 UNITS/10 ML VIAL SC SCH ×2 (08:55→20:05)
[2021-03-16] MEDS ORDERED: Potassium Chloride 20 MEQ TAB PER TUBE SCH (09:00)
[2021-03-16] MEDS: Potassium Bicarbonate/Cit Ac 20 MEQ TAB PER TUBE SCH (21:47)
[2021-03-16] MEDS: Insulin Regular 300 UNITS/3 ML VIAL SC PRN (22:29)
[2021-03-17] MEDS: Morphine 4 MG/ML VIAL SLOW IVP PRN ×5 (01:43→23:05)
[2021-03-17] MEDS: Insulin Regular 300 UNITS/3 ML VIAL SC PRN ×3 (03:36→20:41)
[2021-03-17] MEDS: Piperacillin/Tazobactam 3.375 GM in Sodium Chloride 0.9% 100 ML IVPB SCH ×3 (05:15→22:05)
[2021-03-17] MEDS: cloNIDine 0.1 MG TAB PO SCH ×4 (05:16→23:00)
[2021-03-17] MEDS: carBAMazepine 20 MG/ML ORAL SUSP PO SCH ×4 (05:17→23:03)
[2021-03-17] MEDS: HYDROcodone/Acetaminophen 10/325 mg Tablet PO SCH ×4 (05:17→23:00)
[2021-03-17] MEDS ORDERED: Lorazepam 2 MG/ML VIAL SLOW IVP PRN (06:21)
[2021-03-17 07:53] LABS: Anion Gap 10 mmol/L (10-20); BUN (Urea Nitrogen) 19 mg/dL (8.9-20.6); Calc. Creatinine Clearance 172 mL/min (70-130); Calcium 7.8 mg/dL (7.8-10.44); Carbon Dioxide 27 mmol/L (22-29); Chloride 112 mmol/L (98-107); Glucose 175 mg/dL (70-105); Potassium 3.9 mmol/L (3.5-5.1); Sodium 145 mmol/L (136-145)
[2021-03-17] MEDS: Polyethylene Glycol 3350 17 GM Packet PO SCH (08:29)
[2021-03-17] MEDS: Aspirin 325 MG TAB PO SCH (08:29)
[2021-03-17] MEDS: Potassium Bicarbonate/Cit Ac 20 MEQ TAB PER TUBE SCH ×2 (08:29→20:36)
[2021-03-17] MEDS: Famotidine 20 MG TAB PO SCH ×2 (08:30→20:36)
[2021-03-17] MEDS: Ascorbic Acid 500 mg Chewable Tablet PER TUBE SCH ×2 (08:30→20:36)
[2021-03-17] MEDS: Saccharomyces boulardii 250 MG CAP PO SCH ×2 (08:30→20:36)
[2021-03-17] MEDS: Senokot S 8.6-50 MG TAB PO SCH ×2 (08:30→20:36)
[2021-03-17] MEDS: Lantus 1000 UNITS/10 ML VIAL SC SCH ×2 (08:32→20:41)
[2021-03-17] MEDS: Fluconazole In NaCl,Iso-Osm 400 MG in Premix Bag 1 BAG IVPB SCH (08:32)
[2021-03-18] MEDS: hydrALAZINE 20 MG/ML VIAL SLOW IVP PRN (02:00)
[2021-03-18] MEDS: Morphine 4 MG/ML VIAL SLOW IVP PRN ×7 (02:26→22:25)
[2021-03-18] MEDS: carBAMazepine 20 MG/ML ORAL SUSP PO SCH ×4 (05:13→22:58)
[2021-03-18] MEDS: Piperacillin/Tazobactam 3.375 GM in Sodium Chloride 0.9% 100 ML IVPB SCH ×3 (05:13→21:37)
[2021-03-18] MEDS: HYDROcodone/Acetaminophen 10/325 mg Tablet PO SCH ×4 (05:14→22:58)
[2021-03-18] MEDS: cloNIDine 0.1 MG TAB PO SCH ×4 (06:09→22:58)
[2021-03-18] MEDS: Acetaminophen 650 MG/20.3 ML UDCUP PER TUBE PRN (07:53)
[2021-03-18] MEDS: Famotidine 20 MG TAB PO SCH ×2 (07:53→21:37)
[2021-03-18] MEDS: Saccharomyces boulardii 250 MG CAP PO SCH ×2 (07:53→21:37)
[2021-03-18] MEDS: Ascorbic Acid 500 mg Chewable Tablet PER TUBE SCH ×2 (07:53→21:37)
[2021-03-18] MEDS: Potassium Bicarbonate/Cit Ac 20 MEQ TAB PER TUBE SCH ×2 (07:53→21:37)
[2021-03-18] MEDS: Aspirin 325 MG TAB PO SCH (07:53)
[2021-03-18] MEDS: Lantus 1000 UNITS/10 ML VIAL SC SCH ×2 (07:56→21:39)
[2021-03-18] MEDS: Senokot S 8.6-50 MG TAB PO SCH ×2 (07:57→21:37)
[2021-03-18] MEDS: Polyethylene Glycol 3350 17 GM Packet PO SCH (07:57)
[2021-03-18] MEDS: Fluconazole In NaCl,Iso-Osm 400 MG in Premix Bag 1 BAG IVPB SCH (08:30)
[2021-03-18 09:03] LABS: #Eosinphils 0.2 thou/uL (0.0-0.7); #Lymphocytes 2.1 thou/uL (1.20-3.40); #Monocytes 0.7 thou/uL (0.11-0.59); #Neutrophils 9.7 thou/uL (1.40-6.50); %Basophils 0.1 % (0.0-1.0); %Eosinophils 1.7 % (0.0-10.0); %Lymphocytes 16.7 % (21.0-51.0); %Monocytes 5.4 % (0.0-10.0); %Neutrophils 76.1 % (42.0-75.0); Hemoglobin 8.9 g/dL (14.0-18.0); Mean Corpuscular HGB CONC 33.6 g/dL (32.0-36.0); Mean Corpuscular Hemoglobin 32.9 pg (27.0-31.0); Mean Corpuscular Volume 98.1 fL (78.0-98.0); Mean Platelet Volume 8.2 fL (7.4-10.4); Platelet Count 429 thou/uL (130-400); RBC Distribution Width 14.7 % (11.5-14.5); White Blood Cell (WBC) Count 12.7 thou/uL (4.8-10.8)
[2021-03-18 09:33] LABS: Anion Gap 11 mmol/L (10-20); BUN (Urea Nitrogen) 17 mg/dL (8.9-20.6); Calc. Creatinine Clearance 177 mL/min (70-130); Calcium 7.8 mg/dL (7.8-10.44); Carbon Dioxide 24 mmol/L (22-29); Chloride 110 mmol/L (98-107); Glucose 188 mg/dL (70-105); Magnesium 2.2 mg/dL (1.6-2.6); Phosphorus 2.7 mg/dL (2.3-4.7); Potassium 4.1 mmol/L (3.5-5.1); Sodium 141 mmol/L (136-145)
[2021-03-18] MEDS: Insulin Regular 300 UNITS/3 ML VIAL SC PRN (10:50)
[2021-03-18] MEDS: Haloperidol Lactate 5 MG/ML VIAL IM PRN (22:50)
[2021-03-19] MEDS: Morphine 4 MG/ML VIAL SLOW IVP PRN ×3 (01:25→20:30)
[2021-03-19] MEDS: Piperacillin/Tazobactam 3.375 GM in Sodium Chloride 0.9% 100 ML IVPB SCH ×3 (05:27→20:30)
[2021-03-19] MEDS: hydrALAZINE 20 MG/ML VIAL SLOW IVP PRN (05:29)
[2021-03-19] MEDS: Haloperidol Lactate 5 MG/ML VIAL IM PRN (05:30)
[2021-03-19] MEDS ORDERED: Lorazepam 2 MG/ML VIAL SLOW IVP SCH (06:15)
[2021-03-19] MEDS: carBAMazepine 20 MG/ML ORAL SUSP PO SCH ×3 (06:17→18:07)
[2021-03-19] MEDS: cloNIDine 0.1 MG TAB PO SCH ×3 (06:18→18:09)
[2021-03-19] MEDS: HYDROcodone/Acetaminophen 10/325 mg Tablet PO SCH ×3 (06:18→18:08)
[2021-03-19 06:29] LABS: #Eosinphils 0.3 thou/uL (0.0-0.7); #Monocytes 0.8 thou/uL (0.11-0.59); #Neutrophils 11.7 thou/uL (1.40-6.50); %Basophils 0.2 % (0.0-1.0); %Eosinophils 1.5 % (0.0-10.0); %Lymphocytes 23.5 % (21.0-51.0); %Neutrophils 69.8 % (42.0-75.0); Hemoglobin 10.2 g/dL (14.0-18.0); Mean Corpuscular HGB CONC 32.6 g/dL (32.0-36.0); Mean Corpuscular Hemoglobin 32.2 pg (27.0-31.0); Mean Corpuscular Volume 98.8 fL (78.0-98.0); Mean Platelet Volume 8.3 fL (7.4-10.4); Platelet Count 557 thou/uL (130-400); RBC Distribution Width 14.9 % (11.5-14.5); Red Blood Cell (RBC) Count 3.15 mill/uL (4.70-6.10); White Blood Cell (WBC) Count 16.8 thou/uL (4.8-10.8)
[2021-03-19 06:44] LABS: Anion Gap 13 mmol/L (10-20); BUN (Urea Nitrogen) 11 mg/dL (8.9-20.6); Calc. Creatinine Clearance 184 mL/min (70-130); Calcium 8.3 mg/dL (7.8-10.44); Carbon Dioxide 24 mmol/L (22-29); Chloride 105 mmol/L (98-107); Glucose 122 mg/dL (70-105); Magnesium 2.2 mg/dL (1.6-2.6); Phosphorus 2.6 mg/dL (2.3-4.7); Potassium 4.2 mmol/L (3.5-5.1); Sodium 138 mmol/L (136-145)
[2021-03-19] MEDS: Lantus 1000 UNITS/10 ML VIAL SC SCH ×2 (09:13→20:32)
[2021-03-19] MEDS: Fluconazole In NaCl,Iso-Osm 400 MG in Premix Bag 1 BAG IVPB SCH (09:15)
[2021-03-19] MEDS: Famotidine 20 MG TAB PO SCH ×2 (11:02→20:29)
[2021-03-19] MEDS: Ascorbic Acid 500 mg Chewable Tablet PER TUBE SCH ×2 (11:02→20:30)
[2021-03-19] MEDS: Polyethylene Glycol 3350 17 GM Packet PO SCH (11:02)
[2021-03-19] MEDS: Aspirin 325 MG TAB PO SCH (11:02)
[2021-03-19] MEDS: Senokot S 8.6-50 MG TAB PO SCH ×2 (11:03→20:29)
[2021-03-19] MEDS: Potassium Bicarbonate/Cit Ac 20 MEQ TAB PER TUBE SCH ×2 (11:03→20:29)
[2021-03-19] MEDS: Saccharomyces boulardii 250 MG CAP PO SCH ×2 (11:03→20:29)
[2021-03-19] MEDS ORDERED: Apixaban 5 MG TAB PO SCH (14:00)
[2021-03-19] MEDS: Apixaban 2.5 MG TAB PO SCH (20:30)
[2021-03-20] MEDS: carBAMazepine 20 MG/ML ORAL SUSP PO SCH ×3 (00:16→12:11)
[2021-03-20] MEDS: cloNIDine 0.1 MG TAB PO SCH ×4 (00:17→18:31)
[2021-03-20] MEDS: Morphine 4 MG/ML VIAL SLOW IVP PRN ×4 (00:17→20:31)
[2021-03-20] MEDS: HYDROcodone/Acetaminophen 10/325 mg Tablet PO SCH ×5 (00:22→18:46)
[2021-03-20] MEDS: Piperacillin/Tazobactam 3.375 GM in Sodium Chloride 0.9% 100 ML IVPB SCH (05:26)
[2021-03-20 09:51] LABS: #Basophils 0.1 thou/uL (0.0-0.2); #Eosinphils 0.2 thou/uL (0.0-0.7); #Lymphocytes 3.3 thou/uL (1.20-3.40); #Monocytes 0.8 thou/uL (0.11-0.59); %Basophils 0.5 % (0.0-1.0); %Eosinophils 1.8 % (0.0-10.0); %Lymphocytes 24.4 % (21.0-51.0); %Monocytes 6.2 % (0.0-10.0); %Neutrophils 67.1 % (42.0-75.0); Hemoglobin 10.3 g/dL (14.0-18.0); Mean Corpuscular HGB CONC 30.9 g/dL (32.0-36.0); Mean Corpuscular Hemoglobin 30.6 pg (27.0-31.0); Mean Corpuscular Volume 99.3 fL (78.0-98.0); Platelet Count 612 thou/uL (130-400); Red Blood Cell (RBC) Count 3.36 mill/uL (4.70-6.10); White Blood Cell (WBC) Count 13.5 thou/uL (4.8-10.8)
[2021-03-20] MEDS: Famotidine 20 MG TAB PO SCH ×2 (09:53→20:20)
[2021-03-20] MEDS: Potassium Bicarbonate/Cit Ac 20 MEQ TAB PER TUBE SCH ×2 (09:53→20:20)
[2021-03-20] MEDS: Apixaban 2.5 MG TAB PO SCH ×2 (09:53→20:20)
[2021-03-20] MEDS: Saccharomyces boulardii 250 MG CAP PO SCH ×2 (09:54→20:20)
[2021-03-20] MEDS: Senokot S 8.6-50 MG TAB PO SCH ×2 (09:54→20:20)
[2021-03-20] MEDS: Lantus 1000 UNITS/10 ML VIAL SC SCH ×2 (09:54→12:13)
[2021-03-20] MEDS: Polyethylene Glycol 3350 17 GM Packet PO SCH (09:54)
[2021-03-20] MEDS: Ascorbic Acid 500 mg Chewable Tablet PER TUBE SCH ×2 (09:54→20:19)
[2021-03-20 10:11] LABS: ALT (SGPT) 44 U/L (8-55); AST (SGOT) 47 U/L (5-34); Albumin 2.8 g/dL (3.5-5.0); Alkaline Phosphatase 501 U/L (40-110); Anion Gap 15 mmol/L (10-20); BUN (Urea Nitrogen) 14 mg/dL (8.9-20.6); Bilirubin, Total 0.8 mg/dL (0.2-1.2); Calc. Creatinine Clearance 175 mL/min (70-130); Calcium 8.3 mg/dL (7.8-10.44); Carbon Dioxide 21 mmol/L (22-29); Chloride 104 mmol/L (98-107); Globulin 4.9 g/dL (2.4-3.5); Glucose 155 mg/dL (70-105); Potassium 4.7 mmol/L (3.5-5.1); Protein, Total 7.7 g/dL (6.0-8.3); Sodium 135 mmol/L (136-145)
[2021-03-20] MEDS: Insulin Regular 300 UNITS/3 ML VIAL SC PRN (12:14)
[2021-03-20] MEDS ORDERED: cloNIDine 0.1 MG TAB PO SCH (13:15)
[2021-03-20] MEDS ORDERED: carBAMazepine 200 MG/10 ML UDCUP PO SCH (13:15)
[2021-03-20] MEDS ORDERED: Haloperidol Lactate 5 MG/ML VIAL IM SCH (15:00)
[2021-03-20] MEDS ORDERED: Lorazepam 2 MG/ML VIAL ONE ×2 (15:33)
[2021-03-20] MEDS: carBAMazepine 200 MG/10 ML UDCUP PO SCH (19:03)
[2021-03-21] MEDS: HYDROcodone/Acetaminophen 10/325 mg Tablet PO SCH ×3 (00:44→11:51)
[2021-03-21] MEDS: cloNIDine 0.1 MG TAB PO SCH ×5 (00:51→23:37)
[2021-03-21] MEDS: carBAMazepine 200 MG/10 ML UDCUP PO SCH ×3 (01:13→11:51)
[2021-03-21] MEDS: Morphine 4 MG/ML VIAL SLOW IVP PRN ×4 (03:37→22:26)
[2021-03-21] MEDS: Senokot S 8.6-50 MG TAB PO SCH ×2 (11:45→21:16)
[2021-03-21] MEDS: Ascorbic Acid 500 mg Chewable Tablet PER TUBE SCH ×2 (11:45→21:16)
[2021-03-21] MEDS: Potassium Bicarbonate/Cit Ac 20 MEQ TAB PER TUBE SCH ×2 (11:45→21:16)
[2021-03-21] MEDS: Famotidine 20 MG TAB PO SCH ×2 (11:45→21:16)
[2021-03-21] MEDS: Apixaban 2.5 MG TAB PO SCH ×2 (11:45→21:16)
[2021-03-21] MEDS: Polyethylene Glycol 3350 17 GM Packet PO SCH (11:45)
[2021-03-21] MEDS: Lantus 1000 UNITS/10 ML VIAL SC SCH ×2 (12:24→21:17)
[2021-03-21] MEDS: Insulin Regular 300 UNITS/3 ML VIAL SC PRN (18:53)
[2021-03-21 20:20] LABS: Magnesium 2.2 mg/dL (1.6-2.6)
[2021-03-21] MEDS ORDERED: carBAMazepine 200 MG/10 ML UDCUP PO SCH (21:00)
[2021-03-22] MEDS: Acetaminophen 650 MG/20.3 ML UDCUP PER TUBE PRN (03:21)
[2021-03-22] MEDS: Morphine 4 MG/ML VIAL SLOW IVP PRN (04:10)
[2021-03-22] MEDS: Insulin Regular 300 UNITS/3 ML VIAL SC PRN ×3 (06:05→18:28)
[2021-03-22] MEDS: cloNIDine 0.1 MG TAB PO SCH ×3 (06:05→17:08)
[2021-03-22 06:06] LABS: #Eosinphils 0.1 thou/uL (0.0-0.7); #Lymphocytes 2.1 thou/uL (1.20-3.40); %Basophils 0.2 % (0.0-1.0); %Lymphocytes 15.8 % (21.0-51.0); %Monocytes 7.4 % (0.0-10.0); %Neutrophils 75.6 % (42.0-75.0); Hemoglobin 10.8 g/dL (14.0-18.0); Mean Corpuscular Hemoglobin 32.2 pg (27.0-31.0); Mean Corpuscular Volume 97.5 fL (78.0-98.0); Platelet Count 713 thou/uL (130-400); RBC Distribution Width 14.6 % (11.5-14.5); Red Blood Cell (RBC) Count 3.36 mill/uL (4.70-6.10); White Blood Cell (WBC) Count 13.2 thou/uL (4.8-10.8)
[2021-03-22 06:31] LABS: Anion Gap 14 mmol/L (10-20); BUN (Urea Nitrogen) 19 mg/dL (8.9-20.6); Calc. Creatinine Clearance 156 mL/min (70-130); Calcium 8.5 mg/dL (7.8-10.44); Carbon Dioxide 22 mmol/L (22-29); Chloride 103 mmol/L (98-107); Glucose 216 mg/dL (70-105); Phosphorus 3.1 mg/dL (2.3-4.7); Potassium 4.9 mmol/L (3.5-5.1); Sodium 134 mmol/L (136-145)
[2021-03-22] MEDS ORDERED: carBAMazepine 200 MG/10 ML UDCUP PO SCH (09:00)
[2021-03-22] MEDS ORDERED: Metoprolol Tartrate 25 MG TAB PO SCH (09:00)
[2021-03-22] MEDS ORDERED: Sodium Phosphate 15 MMOL in Sodium Chloride 0.9% 250 ML 250 ML IVPB SCH (09:00)
[2021-03-22] MEDS: HYDROcodone/Acetaminophen 10/325 mg Tablet PO PRN ×2 (09:22→16:48)
[2021-03-22] MEDS: Apixaban 2.5 MG TAB PO SCH ×2 (09:24→21:36)
[2021-03-22] MEDS: Famotidine 20 MG TAB PO SCH ×2 (09:24→21:36)
[2021-03-22] MEDS: Ascorbic Acid 500 mg Chewable Tablet PER TUBE SCH ×2 (09:25→21:35)
[2021-03-22] MEDS: Senokot S 8.6-50 MG TAB PO SCH ×2 (09:25→21:37)
[2021-03-22] MEDS: Potassium Bicarbonate/Cit Ac 20 MEQ TAB PER TUBE SCH ×2 (09:25→21:35)
[2021-03-22] MEDS: Polyethylene Glycol 3350 17 GM Packet PO SCH (09:27)
[2021-03-22] MEDS: Lantus 1000 UNITS/10 ML VIAL SC SCH ×2 (09:28→21:38)
[2021-03-22] MEDS: Sodium Chloride 1 GM TAB PO SCH ×2 (10:39→21:36)
[2021-03-22] MEDS: Metoprolol Tartrate 25 MG TAB PO SCH ×2 (12:24→17:08)
[2021-03-23] MEDS: HYDROcodone/Acetaminophen 10/325 mg Tablet PO PRN ×4 (00:32→23:19)
[2021-03-23] MEDS: Metoprolol Tartrate 25 MG TAB PO SCH ×4 (00:34→19:50)
[2021-03-23] MEDS: Insulin Regular 300 UNITS/3 ML VIAL SC PRN ×3 (00:34→18:40)
[2021-03-23] MEDS: cloNIDine 0.1 MG TAB PO SCH ×5 (00:34→23:18)
[2021-03-23] MEDS: Acetaminophen 650 MG/20.3 ML UDCUP PER TUBE PRN (05:54)
[2021-03-23] MEDS ORDERED: Furosemide 40 MG/4 ML VIAL SLOW IVP SCH (08:45)
[2021-03-23] MEDS: Apixaban 2.5 MG TAB PO SCH ×2 (09:21→19:50)
[2021-03-23] MEDS: Senokot S 8.6-50 MG TAB PO SCH ×2 (09:21→19:50)
[2021-03-23] MEDS: Famotidine 20 MG TAB PO SCH ×2 (09:21→19:50)
[2021-03-23] MEDS: Ascorbic Acid 500 mg Chewable Tablet PER TUBE SCH ×2 (09:23→19:51)
[2021-03-23] MEDS: Potassium Bicarbonate/Cit Ac 20 MEQ TAB PER TUBE SCH ×2 (09:23→19:51)
[2021-03-23] MEDS: Polyethylene Glycol 3350 17 GM Packet PO SCH (09:23)
[2021-03-23] MEDS: Sodium Chloride 1 GM TAB PO SCH ×2 (09:23→19:51)
[2021-03-23] MEDS: Lantus 1000 UNITS/10 ML VIAL SC SCH ×2 (09:26→19:51)
[2021-03-23] MEDS ORDERED: Haloperidol Lactate 5 MG/ML VIAL SLOW IVP SCH (12:15)
[2021-03-23] MEDS ORDERED: Morphine 4 MG/ML VIAL SLOW IVP SCH (13:30)
[2021-03-24 04:49] VITALS: BMI 31.5
[2021-03-24] MEDS: cloNIDine 0.1 MG TAB PO SCH ×4 (04:55→22:58)
[2021-03-24] MEDS: HYDROcodone/Acetaminophen 10/325 mg Tablet PO PRN ×2 (04:56→19:57)
[2021-03-24 07:18] LABS: #Eosinphils 0.3 thou/uL (0.0-0.7); #Lymphocytes 1.9 thou/uL (1.20-3.40); #Monocytes 1.1 thou/uL (0.11-0.59); #Neutrophils 11.8 thou/uL (1.40-6.50); %Basophils 0.2 % (0.0-1.0); %Eosinophils 1.7 % (0.0-10.0); %Lymphocytes 12.5 % (21.0-51.0); %Neutrophils 78.6 % (42.0-75.0); Hemoglobin 10.5 g/dL (14.0-18.0); Mean Corpuscular HGB CONC 31.2 g/dL (32.0-36.0); Mean Corpuscular Hemoglobin 30.6 pg (27.0-31.0); Mean Corpuscular Volume 98.3 fL (78.0-98.0); Platelet Count 697 thou/uL (130-400); RBC Distribution Width 14.7 % (11.5-14.5); Red Blood Cell (RBC) Count 3.43 mill/uL (4.70-6.10)
[2021-03-24 07:31] LABS: Anion Gap 11 mmol/L (10-20); BUN (Urea Nitrogen) 25 mg/dL (8.9-20.6); Calc. Creatinine Clearance 167 mL/min (70-130); Calcium 8.4 mg/dL (7.8-10.44); Carbon Dioxide 26 mmol/L (22-29); Chloride 109 mmol/L (98-107); Glucose 185 mg/dL (70-105); Magnesium 2.6 mg/dL (1.6-2.6); Phosphorus 3.3 mg/dL (2.3-4.7); Sodium 142 mmol/L (136-145)
[2021-03-24] MEDS: Potassium Bicarbonate/Cit Ac 20 MEQ TAB PER TUBE SCH ×2 (10:57→19:56)
[2021-03-24] MEDS: Polyethylene Glycol 3350 17 GM Packet PO SCH (10:57)
[2021-03-24] MEDS: Senokot S 8.6-50 MG TAB PO SCH ×2 (10:58→19:58)
[2021-03-24] MEDS: Apixaban 2.5 MG TAB PO SCH ×2 (10:59→19:57)
[2021-03-24] MEDS: Famotidine 20 MG TAB PO SCH ×2 (11:00→19:57)
[2021-03-24] MEDS: Ascorbic Acid 500 mg Chewable Tablet PER TUBE SCH ×2 (11:00→19:57)
[2021-03-24] MEDS: Metoprolol Tartrate 25 MG TAB PO SCH ×2 (11:02→19:57)
[2021-03-24] MEDS: Lantus 1000 UNITS/10 ML VIAL SC SCH ×2 (11:04→19:56)
[2021-03-24] MEDS: Nystatin 500,000 UNITS/5 ML UDCUP SSW SCH ×3 (13:25→19:56)
[2021-03-24] MEDS: Insulin Regular 300 UNITS/3 ML VIAL SC PRN (17:43)
[2021-03-25] MEDS: cloNIDine 0.1 MG TAB PO SCH ×2 (05:06→12:36)
[2021-03-25 06:45] LABS: #Eosinphils 0.3 thou/uL (0.0-0.7); #Lymphocytes 2.1 thou/uL (1.20-3.40); #Monocytes 1.1 thou/uL (0.11-0.59); #Neutrophils 13.1 thou/uL (1.40-6.50); %Basophils 0.2 % (0.0-1.0); %Eosinophils 1.5 % (0.0-10.0); %Lymphocytes 12.7 % (21.0-51.0); %Monocytes 6.5 % (0.0-10.0); %Neutrophils 79.1 % (42.0-75.0); Hemoglobin 11.2 g/dL (14.0-18.0); Mean Corpuscular HGB CONC 32.6 g/dL (32.0-36.0); Mean Corpuscular Hemoglobin 32.3 pg (27.0-31.0); Mean Corpuscular Volume 99.1 fL (78.0-98.0); Mean Platelet Volume 7.8 fL (7.4-10.4); Platelet Count 612 thou/uL (130-400); RBC Distribution Width 14.8 % (11.5-14.5); Red Blood Cell (RBC) Count 3.47 mill/uL (4.70-6.10); White Blood Cell (WBC) Count 16.5 thou/uL (4.8-10.8)
[2021-03-25] MEDS: Nystatin 500,000 UNITS/5 ML UDCUP SSW SCH ×4 (08:11→22:28)
[2021-03-25] MEDS: Apixaban 2.5 MG TAB PO SCH ×2 (08:13→22:27)
[2021-03-25] MEDS: Senokot S 8.6-50 MG TAB PO SCH ×2 (08:14→22:29)
[2021-03-25] MEDS: Famotidine 20 MG TAB PO SCH ×2 (08:14→22:26)
[2021-03-25] MEDS: Polyethylene Glycol 3350 17 GM Packet PO SCH (08:14)
[2021-03-25] MEDS: Potassium Bicarbonate/Cit Ac 20 MEQ TAB PER TUBE SCH ×2 (08:14→22:28)
[2021-03-25] MEDS: Ascorbic Acid 500 mg Chewable Tablet PER TUBE SCH ×2 (08:14→22:26)
[2021-03-25] MEDS: Metoprolol Tartrate 25 MG TAB PO SCH ×2 (08:17→22:27)
[2021-03-25] MEDS: Lantus 1000 UNITS/10 ML VIAL SC SCH ×2 (08:18→22:20)
[2021-03-25] MEDS: HYDROcodone/Acetaminophen 10/325 mg Tablet PO PRN (08:20)
[2021-03-25] MEDS ORDERED: Vancomycin HCl 2.5 GM in Sodium Chloride 0.9% 500 ML IVPB SCH (15:45)
[2021-03-25] MEDS ORDERED: Piperacillin/Tazobactam 3.375 GM in Sodium Chloride 0.9% 100 ML IVPB SCH ×2 (15:45→18:00)
[2021-03-25] MEDS: Piperacillin/Tazobactam 3.375 GM in Sodium Chloride 0.9% 100 ML IVPB SCH (23:30)
[2021-03-25] MEDS: Vancomycin 1.5 GRAM/300 ML BAG 1.5 GM in Premix Bag 1 BAG IVPB SCH (23:34)
[2021-03-26] MEDS: Insulin Regular 300 UNITS/3 ML VIAL SC PRN ×4 (00:32→18:08)
[2021-03-26 06:15] LABS: Hemoglobin 11.5 g/dL (14.0-18.0); Mean Corpuscular HGB CONC 32.5 g/dL (32.0-36.0); Mean Corpuscular Volume 98.6 fL (78.0-98.0); Mean Platelet Volume 7.8 fL (7.4-10.4); Platelet Count 535 thou/uL (130-400); RBC Distribution Width 14.5 % (11.5-14.5); Red Blood Cell (RBC) Count 3.59 mill/uL (4.70-6.10); White Blood Cell (WBC) Count 17.1 thou/uL (4.8-10.8)
[2021-03-26 06:41] LABS: Anion Gap 11 mmol/L (10-20); BUN (Urea Nitrogen) 24 mg/dL (8.9-20.6); Calc. Creatinine Clearance 153 mL/min (70-130); Calcium 8.5 mg/dL (7.8-10.44); Carbon Dioxide 25 mmol/L (22-29); Chloride 113 mmol/L (98-107); Glucose 189 mg/dL (70-105); Magnesium 3.1 mg/dL (1.6-2.6); Phosphorus 2.6 mg/dL (2.3-4.7); Potassium 4.1 mmol/L (3.5-5.1); Sodium 145 mmol/L (136-145)
[2021-03-26] MEDS: Vancomycin 1.5 GRAM/300 ML BAG 1.5 GM in Premix Bag 1 BAG IVPB SCH ×2 (08:41→16:34)
[2021-03-26] MEDS: Ascorbic Acid 500 mg Chewable Tablet PER TUBE SCH ×2 (09:42→20:49)
[2021-03-26] MEDS: Metoprolol Tartrate 25 MG TAB PO SCH ×2 (09:42→20:50)
[2021-03-26] MEDS: Apixaban 2.5 MG TAB PO SCH ×2 (09:42→20:49)
[2021-03-26] MEDS: Nystatin 500,000 UNITS/5 ML UDCUP SSW SCH ×4 (09:42→20:50)
[2021-03-26] MEDS: Potassium Bicarbonate/Cit Ac 20 MEQ TAB PER TUBE SCH ×2 (09:42→20:50)
[2021-03-26] MEDS: Senokot S 8.6-50 MG TAB PO SCH ×2 (09:43→20:51)
[2021-03-26] MEDS: Lantus 1000 UNITS/10 ML VIAL SC SCH ×2 (09:43→20:50)
[2021-03-26] MEDS: Polyethylene Glycol 3350 17 GM Packet PO SCH (09:43)
[2021-03-26] MEDS: Famotidine 20 MG TAB PO SCH ×2 (09:43→20:49)
[2021-03-26] MEDS: Piperacillin/Tazobactam 3.375 GM in Sodium Chloride 0.9% 100 ML IVPB SCH ×3 (09:44→18:08)
[2021-03-26 10:06] LABS: Band 15 % (5-11); Eosinophils 3 % (0-10); Lymphocytes 9 % (21-51); MDiff Complete? YES; Metamyelocyte 3 % (0-0); Neutrophil 69 % (42-75); Reactive Lymphocytes 1 % (0-10)
[2021-03-27] MEDS: Insulin Regular 300 UNITS/3 ML VIAL SC PRN ×2 (00:02→06:16)
[2021-03-27 01:14] LABS: Vancomycin, Trough 23.1 ug/mL
[2021-03-27] MEDS: Piperacillin/Tazobactam 3.375 GM in Sodium Chloride 0.9% 100 ML IVPB SCH ×3 (01:30→17:20)
[2021-03-27] MEDS: Vancomycin 1.5 GRAM/300 ML BAG 1.5 GM in Premix Bag 1 BAG IVPB SCH (02:45)
[2021-03-27 05:57] LABS: #Eosinphils 0.7 thou/uL (0.0-0.7); #Monocytes 0.7 thou/uL (0.11-0.59); #Neutrophils 7.7 thou/uL (1.40-6.50); %Basophils 0.3 % (0.0-1.0); %Eosinophils 6.2 % (0.0-10.0); %Lymphocytes 17.7 % (21.0-51.0); %Monocytes 6.6 % (0.0-10.0); %Neutrophils 69.3 % (42.0-75.0); Hemoglobin 10.6 g/dL (14.0-18.0); Mean Corpuscular HGB CONC 31.4 g/dL (32.0-36.0); Mean Corpuscular Hemoglobin 31.2 pg (27.0-31.0); Mean Corpuscular Volume 99.4 fL (78.0-98.0); Mean Platelet Volume 8.1 fL (7.4-10.4); Platelet Count 499 thou/uL (130-400); RBC Distribution Width 14.4 % (11.5-14.5); Red Blood Cell (RBC) Count 3.41 mill/uL (4.70-6.10); White Blood Cell (WBC) Count 11.1 thou/uL (4.8-10.8)
[2021-03-27] MEDS: VANCOMYCIN 1.25 GM/250 ML BAG 1.25 GM in Premix Bag 1 BAG IVPB SCH ×3 (06:16→23:24)
[2021-03-27 06:20] LABS: Anion Gap 9 mmol/L (10-20); BUN (Urea Nitrogen) 22 mg/dL (8.9-20.6); Calc. Creatinine Clearance 161 mL/min (70-130); Calcium 8.4 mg/dL (7.8-10.44); Carbon Dioxide 27 mmol/L (22-29); Chloride 116 mmol/L (98-107); Glucose 200 mg/dL (70-105); Magnesium 2.7 mg/dL (1.6-2.6); Phosphorus 2.8 mg/dL (2.3-4.7); Potassium 4.2 mmol/L (3.5-5.1); Sodium 148 mmol/L (136-145)
[2021-03-27] MEDS: Ascorbic Acid 500 mg Chewable Tablet PER TUBE SCH (09:38)
[2021-03-27] MEDS: Nystatin 500,000 UNITS/5 ML UDCUP SSW SCH ×3 (09:38→17:17)
[2021-03-27] MEDS: Potassium Bicarbonate/Cit Ac 20 MEQ TAB PER TUBE SCH (09:38)
[2021-03-27] MEDS: Famotidine 20 MG TAB PO SCH (09:38)
[2021-03-27] MEDS: Apixaban 2.5 MG TAB PO SCH (09:38)
[2021-03-27] MEDS: Metoprolol Tartrate 25 MG TAB PO SCH (09:38)
[2021-03-27] MEDS: Senokot S 8.6-50 MG TAB PO SCH (09:39)
[2021-03-27] MEDS: Polyethylene Glycol 3350 17 GM Packet PO SCH (09:39)
[2021-03-27] MEDS: Lantus 1000 UNITS/10 ML VIAL SC SCH (10:35)
[2021-03-27] MEDS ORDERED: Triple Antibiotic Opth Oint 3.5 GM TUBE R EYE SCH (12:00)
[2021-03-27] MEDS: Cortisporin 1% Opth Oint 3.5 GM TUBE R EYE SCH ×2 (14:31→17:20)
[2021-03-28] MEDS: Nystatin 500,000 UNITS/5 ML UDCUP SSW SCH ×5 (00:33→23:23)
[2021-03-28] MEDS: Metoprolol Tartrate 25 MG TAB PO SCH ×3 (00:34→23:23)
[2021-03-28] MEDS: Potassium Bicarbonate/Cit Ac 20 MEQ TAB PER TUBE SCH ×3 (00:34→23:23)
[2021-03-28] MEDS: Ascorbic Acid 500 mg Chewable Tablet PER TUBE SCH ×3 (00:34→23:24)
[2021-03-28] MEDS: Famotidine 20 MG TAB PO SCH ×3 (00:35→23:24)
[2021-03-28] MEDS: Lantus 1000 UNITS/10 ML VIAL SC SCH ×3 (00:35→23:22)
[2021-03-28] MEDS: Apixaban 2.5 MG TAB PO SCH ×3 (00:35→23:24)
[2021-03-28] MEDS: Senokot S 8.6-50 MG TAB PO SCH ×3 (00:39→23:24)
[2021-03-28] MEDS: Cortisporin 1% Opth Oint 3.5 GM TUBE R EYE SCH ×5 (01:11→23:23)
[2021-03-28] MEDS ORDERED: Piperacillin/Tazobactam 3.375 GM in Sodium Chloride 0.9% 100 ML IVPB SCH ×2 (03:00→10:00)
[2021-03-28] MEDS: Piperacillin/Tazobactam 3.375 GM in Sodium Chloride 0.9% 100 ML IVPB SCH (03:13)
[2021-03-28 05:53] LABS: #Eosinphils 0.6 thou/uL (0.0-0.7); #Lymphocytes 2.3 thou/uL (1.20-3.40); #Monocytes 0.7 thou/uL (0.11-0.59); #Neutrophils 6.5 thou/uL (1.40-6.50); %Eosinophils 6.1 % (0.0-10.0); %Lymphocytes 22.8 % (21.0-51.0); %Monocytes 6.9 % (0.0-10.0); %Neutrophils 64.1 % (42.0-75.0); Hemoglobin 11.1 g/dL (14.0-18.0); Mean Corpuscular HGB CONC 31.5 g/dL (32.0-36.0); Mean Corpuscular Hemoglobin 31.3 pg (27.0-31.0); Mean Corpuscular Volume 99.3 fL (78.0-98.0); Platelet Count 493 thou/uL (130-400); RBC Distribution Width 14.3 % (11.5-14.5); Red Blood Cell (RBC) Count 3.53 mill/uL (4.70-6.10); White Blood Cell (WBC) Count 10.2 thou/uL (4.8-10.8)
[2021-03-28 06:10] LABS: Anion Gap 13 mmol/L (10-20); BUN (Urea Nitrogen) 21 mg/dL (8.9-20.6); Calc. Creatinine Clearance 171 mL/min (70-130); Calcium 8.6 mg/dL (7.8-10.44); Carbon Dioxide 21 mmol/L (22-29); Chloride 114 mmol/L (98-107); Glucose 179 mg/dL (70-105); Magnesium 2.4 mg/dL (1.6-2.6); Phosphorus 3.1 mg/dL (2.3-4.7); Potassium 4.2 mmol/L (3.5-5.1); Sodium 144 mmol/L (136-145)
[2021-03-28] MEDS: Insulin Regular 300 UNITS/3 ML VIAL SC PRN (06:23)
[2021-03-28] MEDS: VANCOMYCIN 1.25 GM/250 ML BAG 1.25 GM in Premix Bag 1 BAG IVPB SCH (06:23)
[2021-03-28] MEDS: Saccharomyces boulardii 250 MG CAP PO SCH ×2 (09:20→23:24)
[2021-03-28] MEDS: Polyethylene Glycol 3350 17 GM Packet PO SCH (09:21)
[2021-03-28] MEDS: cefTRIAXone\\ROCEPHIN 1 GM in Sodium Chloride 0.9% 100 ML IVPB SCH (12:13)
[2021-03-29] MEDS: Cortisporin 1% Opth Oint 3.5 GM TUBE R EYE SCH ×4 (05:22→23:05)
[2021-03-29] MEDS: Senokot S 8.6-50 MG TAB PO SCH ×2 (09:50→23:05)
[2021-03-29] MEDS: Saccharomyces boulardii 250 MG CAP PO SCH ×2 (09:50→23:04)
[2021-03-29] MEDS: Nystatin 500,000 UNITS/5 ML UDCUP SSW SCH ×4 (09:50→23:04)
[2021-03-29] MEDS: Polyethylene Glycol 3350 17 GM Packet PO SCH (09:51)
[2021-03-29] MEDS: Ascorbic Acid 500 mg Chewable Tablet PER TUBE SCH ×2 (09:51→23:04)
[2021-03-29] MEDS: Apixaban 2.5 MG TAB PO SCH ×2 (09:51→23:18)
[2021-03-29] MEDS: Potassium Bicarbonate/Cit Ac 20 MEQ TAB PER TUBE SCH ×2 (09:51→23:03)
[2021-03-29] MEDS: Metoprolol Tartrate 25 MG TAB PO SCH ×2 (09:51→23:04)
[2021-03-29] MEDS: Famotidine 20 MG TAB PO SCH ×2 (09:51→23:04)
[2021-03-29] MEDS: Lantus 1000 UNITS/10 ML VIAL SC SCH ×2 (09:51→23:04)
[2021-03-29] MEDS: cefTRIAXone\\ROCEPHIN 1 GM in Sodium Chloride 0.9% 100 ML IVPB SCH (11:14)
[2021-03-30 06:03] LABS: Anion Gap 12 mmol/L (10-20); BUN (Urea Nitrogen) 18 mg/dL (8.9-20.6); Calc. Creatinine Clearance 188 mL/min (70-130); Calcium 8.8 mg/dL (7.8-10.44); Carbon Dioxide 23 mmol/L (22-29); Chloride 111 mmol/L (98-107); Glucose 157 mg/dL (70-105); Potassium 4.3 mmol/L (3.5-5.1); Sodium 142 mmol/L (136-145)
[2021-03-30] MEDS: Cortisporin 1% Opth Oint 3.5 GM TUBE R EYE SCH ×4 (06:10→23:42)
[2021-03-30] MEDS: Metoprolol Tartrate 25 MG TAB PO SCH ×2 (09:43→21:23)
[2021-03-30] MEDS: Saccharomyces boulardii 250 MG CAP PO SCH ×2 (09:43→21:23)
[2021-03-30] MEDS: Lantus 1000 UNITS/10 ML VIAL SC SCH ×2 (09:44→23:40)
[2021-03-30] MEDS: Ascorbic Acid 500 mg Chewable Tablet PER TUBE SCH ×2 (09:44→21:23)
[2021-03-30] MEDS: Nystatin 500,000 UNITS/5 ML UDCUP SSW SCH ×4 (09:44→21:23)
[2021-03-30] MEDS: Senokot S 8.6-50 MG TAB PO SCH ×2 (09:44→21:24)
[2021-03-30] MEDS: Famotidine 20 MG TAB PO SCH ×2 (09:44→21:23)
[2021-03-30] MEDS: Apixaban 2.5 MG TAB PO SCH ×2 (09:44→21:23)
[2021-03-30] MEDS: Potassium Bicarbonate/Cit Ac 20 MEQ TAB PER TUBE SCH ×2 (09:44→21:23)
[2021-03-30] MEDS: Polyethylene Glycol 3350 17 GM Packet PO SCH (09:44)
[2021-03-30] MEDS: cefTRIAXone\\ROCEPHIN 1 GM in Sodium Chloride 0.9% 100 ML IVPB SCH (11:58)
[2021-03-30] MEDS: Insulin Regular 300 UNITS/3 ML VIAL SC PRN (12:04)
[2021-03-30] MEDS: Moxifloxacin 0.5% Opth Drop 3 ML BOT L EYE SCH (15:55)
[2021-03-30 16:59] LABS: SARS-CoV-2 PCR by NAA Not Detected (NotDetected)
[2021-03-30] MEDS: Melatonin 3 MG TAB PO PRN (23:40)
[2021-03-31] MEDS: Cortisporin 1% Opth Oint 3.5 GM TUBE R EYE SCH ×4 (05:29→23:50)
[2021-03-31 06:11] LABS: Anion Gap 12 mmol/L (10-20); BUN (Urea Nitrogen) 20 mg/dL (8.9-20.6); Calc. Creatinine Clearance 180 mL/min (70-130); Calcium 8.9 mg/dL (7.8-10.44); Carbon Dioxide 23 mmol/L (22-29); Chloride 111 mmol/L (98-107); Glucose 117 mg/dL (70-105); Magnesium 2.5 mg/dL (1.6-2.6); Phosphorus 3.7 mg/dL (2.3-4.7); Potassium 5.8 mmol/L (3.5-5.1); Sodium 140 mmol/L (136-145)
[2021-03-31] MEDS ORDERED: Lantus 1000 UNITS/10 ML VIAL SC SCH ×2 (10:32→11:00)
[2021-03-31] MEDS: Ascorbic Acid 500 mg Chewable Tablet PER TUBE SCH ×2 (11:05→20:50)
[2021-03-31] MEDS: Metoprolol Tartrate 25 MG TAB PO SCH ×2 (11:05→20:51)
[2021-03-31] MEDS: Famotidine 20 MG TAB PO SCH ×2 (11:05→20:50)
[2021-03-31] MEDS: Saccharomyces boulardii 250 MG CAP PO SCH ×2 (11:05→20:51)
[2021-03-31] MEDS: Apixaban 2.5 MG TAB PO SCH ×2 (11:05→20:50)
[2021-03-31] MEDS: Nystatin 500,000 UNITS/5 ML UDCUP SSW SCH ×4 (11:05→20:52)
[2021-03-31] MEDS: Polyethylene Glycol 3350 17 GM Packet PO SCH (11:06)
[2021-03-31] MEDS: Senokot S 8.6-50 MG TAB PO SCH ×2 (11:06→20:51)
[2021-03-31] MEDS: cefTRIAXone\\ROCEPHIN 1 GM in Sodium Chloride 0.9% 100 ML IVPB SCH (11:19)
[2021-03-31] MEDS: Lantus 1000 UNITS/10 ML VIAL SC SCH (11:30)
[2021-03-31 12:07] LABS: Anion Gap 14 mmol/L (10-20); BUN (Urea Nitrogen) 20 mg/dL (8.9-20.6); Calc. Creatinine Clearance 194 mL/min (70-130); Calcium 9.2 mg/dL (7.8-10.44); Carbon Dioxide 23 mmol/L (22-29); Chloride 109 mmol/L (98-107); Glucose 140 mg/dL (70-105); Sodium 142 mmol/L (136-145)
[2021-04-01] MEDS: Acetaminophen 650 MG/20.3 ML UDCUP PER TUBE PRN ×2 (01:06→21:52)
[2021-04-01] MEDS: Melatonin 3 MG TAB PO PRN (01:06)
[2021-04-01] MEDS: Cortisporin 1% Opth Oint 3.5 GM TUBE R EYE SCH ×3 (05:50→17:24)
[2021-04-01] MEDS ORDERED: Melatonin 3 MG TAB PO PRN (08:13)
[2021-04-01] MEDS: Famotidine 20 MG TAB PO SCH ×2 (08:59→20:11)
[2021-04-01] MEDS: Apixaban 2.5 MG TAB PO SCH ×2 (08:59→20:11)
[2021-04-01] MEDS: Senokot S 8.6-50 MG TAB PO SCH ×2 (08:59→20:12)
[2021-04-01] MEDS: Saccharomyces boulardii 250 MG CAP PO SCH ×2 (09:00→20:12)
[2021-04-01] MEDS: Nystatin 500,000 UNITS/5 ML UDCUP SSW SCH ×4 (09:00→20:12)
[2021-04-01] MEDS: Ascorbic Acid 500 mg Chewable Tablet PER TUBE SCH ×2 (09:00→20:11)
[2021-04-01] MEDS ORDERED: Lantus 1000 UNITS/10 ML VIAL SC SCH ×3 (09:00→21:00)
[2021-04-01] MEDS: Metoprolol Tartrate 25 MG TAB PO SCH ×2 (09:00→20:12)
[2021-04-01] MEDS: Polyethylene Glycol 3350 17 GM Packet PO SCH (09:01)
[2021-04-01] MEDS: cefTRIAXone\\ROCEPHIN 1 GM in Sodium Chloride 0.9% 100 ML IVPB SCH (09:12)
[2021-04-02] MEDS: Cortisporin 1% Opth Oint 3.5 GM TUBE R EYE SCH ×3 (00:04→12:26)
[2021-04-02] MEDS: Insulin Regular 300 UNITS/3 ML VIAL SC PRN (06:30)
[2021-04-02] MEDS: Saccharomyces boulardii 250 MG CAP PO SCH (08:40)
[2021-04-02] MEDS: Metoprolol Tartrate 25 MG TAB PO SCH (08:40)
[2021-04-02] MEDS: Ascorbic Acid 500 mg Chewable Tablet PER TUBE SCH (08:40)
[2021-04-02] MEDS: Famotidine 20 MG TAB PO SCH (08:40)
[2021-04-02] MEDS: Apixaban 2.5 MG TAB PO SCH (08:40)
[2021-04-02] MEDS: Senokot S 8.6-50 MG TAB PO SCH (08:41)
[2021-04-02] MEDS: Nystatin 500,000 UNITS/5 ML UDCUP SSW SCH ×2 (08:41→12:26)
[2021-04-02] MEDS: Polyethylene Glycol 3350 17 GM Packet PO SCH (08:41)
[2021-04-02] MEDS: Acetaminophen 650 MG/20.3 ML UDCUP PER TUBE PRN (08:43)
[2021-04-02] MEDS ORDERED: Lantus 1000 UNITS/10 ML VIAL SC SCH (09:00)
[2021-04-02] MEDS: cefTRIAXone\\ROCEPHIN 1 GM in Sodium Chloride 0.9% 100 ML IVPB SCH (10:11)
[2021-04-02 11:40] VITALS: BP 124/85; TEMP 97.7
== END 2021-04-02 15:15 | DRG 4 ==
LOC: ERS 21:47 → CCU 22:12 → SURG A 03-20 20:51
PROVIDERS: ADMIT Surgery; ATTEND Surgery
PROC: 5A1955Z Respiratory Ventilation, Greater than 96 Consecutive Hours (ICD-10-PCS; 2021-03-04)
PROC: 3E033XZ Introduction of Vasopressor into Peripheral Vein, Percutaneous Approach (ICD-10-PCS; 2021-03-06)
PROC: 0B113F4 Bypass Trachea to Cutaneous with Tracheostomy Device, Percutaneous Approach (ICD-10-PCS; principal; 2021-03-07)
PROC: 0DH63UZ Insertion of Feeding Device into Stomach, Percutaneous Approach (ICD-10-PCS; 2021-03-07)
DX: S06.6X0A Traumatic subarachnoid hemorrhage without loss of consciousness, initial encounter (principal); S22.5XXA Flail chest, initial encounter for closed fracture; J96.00 Acute respiratory failure, unspecified whether with hypoxia or hypercapnia; S27.2XXA Traumatic hemopneumothorax, initial encounter; J69.0 Pneumonitis due to inhalation of food and vomit; G93.41 Metabolic encephalopathy; J15.211 Pneumonia due to Methicillin susceptible Staphylococcus aureus; J15.6 Pneumonia due to other Gram-negative bacteria; S12.000A Unspecified displaced fracture of first cervical vertebra, initial encounter for closed fracture; S27.322A Contusion of lung, bilateral, initial encounter; D62 Acute posthemorrhagic anemia; E87.2 Acidosis; E87.0 Hyperosmolality and hypernatremia; E87.1 Hypo-osmolality and hyponatremia; I82.411 Acute embolism and thrombosis of right femoral vein; S06.5X0A Traumatic subdural hemorrhage without loss of consciousness, initial encounter; S02.19XA Other fracture of base of skull, initial encounter for closed fracture; S02.113A Unspecified occipital condyle fracture, initial encounter for closed fracture; S06.8 Other specified intracranial injuries; Z20.822 Contact with and (suspected) exposure to COVID-19; G93.89 Other specified disorders of brain; T79.6XXA Traumatic ischemia of muscle, initial encounter; R73.9 Hyperglycemia, unspecified; D47.3 Essential (hemorrhagic) thrombocythemia; R40.2354 Coma scale, best motor response, localizes pain, 24 hours or more after hospital admission; R40.2134 Coma scale, eyes open, to sound, 24 hours or more after hospital admission; E83.51 Hypocalcemia; E87.6 Hypokalemia; E83.39 Other disorders of phosphorus metabolism; L89.151 Pressure ulcer of sacral region, stage 1; R13.10 Dysphagia, unspecified; H10.9 Unspecified conjunctivitis; H47.092 Other disorders of optic nerve, not elsewhere classified, left eye; E87.5 Hyperkalemia; Z78.1 Physical restraint status; V43.62XA Car passenger injured in collision with other type car in traffic accident, initial encounter
CPT/HCPCS: 31624; 36415; 36416; 36600; 70450; 70496; 70498; 71045; 72040; 74018; 74019; 74230; 80048; 80053; 80076; 80202; 81001; 82140; 82533; 82550; 82805; 83036; 83605; 83735; 83880; 84100; 85007; 85025; 85027; 85610; 85730; 86850; 86900; 86901; 87040; 87070; 87077; 87086; 87186; 87205; 89220; 90471; 90715; 93970; 94002; 94003; 94640; 96365; 96375; G0390; J0360; J0690; J0696; J1200; J1450; J1630; J1720; J1815; J1940; J2060; J2250; J2270; J2543; J2704; J3010; J3370; J3490; J7030; J7050; J7620; Q9967; S0028; U0003; U0005